=== PATIENT | female | born 1970 | race Caucasian/White ===

== ENCOUNTER 2019-11-02 08:44 | Outpatient (CLI) | payer OTHER, SELFPAY ==
--- NOTE | 2019-11-02 11:00 | NEURO_ITS ---
Patient Number: [id number] Impression: # Complains of foot pain bilaterally. # Tibial nerve terminal latencies longer than peroneal nerves. # Normal needle/EMG exam. # Clinical correlation recommended. Nerve Conduction Studies Anti Sensory Summary Table Stim Site NR Peak (ms) P-T Amp (?V) Site1 Site2 Delta-P (ms) Dist (cm) Naresh (m/s) Left Sup Fibular Anti Sensory (Ant Lat Mall) 14 cm 3.6 16.6 14 cm Ant Lat Mall 3.6 16.0 44 Right Sup Fibular Anti Sensory (Ant Lat Mall) 14 cm 3.6 8.8 14 cm Ant Lat Mall 3.6 16.0 44 Left Sural Anti Sensory (Lat Mall) Calf 3.7 3.6 Calf Lat Mall 3.7 16.0 43 Right Sural Anti Sensory (Lat Mall) Calf 3.6 9.4 Calf Lat Mall 3.6 16.0 44 Motor Summary Table Stim Site NR Onset (ms) O-P Amp (mV) Site1 Site2 Delta-0 (ms) Dist (cm) Naresh (m/s) Left Peroneal Motor (Vastus Med) Ankle 4.3 1.6 Popit Ankle 7.8 40.0 51 Popit 12.1 0.9 Right Peroneal Motor (Vastus Med) Ankle 4.3 1.0 Popit Ankle 9.0 38.0 42 Popit 13.3 0.8 Left Tibial Motor (Abd Rider Brev) Ankle 5.3 7.2 Knee Ankle 9.6 42.0 44 Knee 14.9 4.5 Right Tibial Motor (Abd Rider Brev) Ankle 5.4 1.7 Knee Ankle 9.7 43.0 44 Knee 15.1 1.1 F Wave Studies NR F-Lat (ms) L-R F-Lat (ms) Left Peroneal (Mrkrs) (EDB) 57.27 1.60 Right Peroneal (Mrkrs) (EDB) 58.87 1.60 Left Tibial (Mrkrs) (Abd Hallucis) 57.96 0.64 Right Tibial (Mrkrs) (Abd Hallucis) 58.60 0.64 EMG Side Muscle Nerve Root Ins Act Fibs Amp Dur Recrt Comment Right AntTibialis Dp Br Fibular L4-5 Nml Nml Nml Nml Nml Right Gastroc Tibial S1-2 Nml Nml Nml Nml Nml Right Fibularis Long Sup Br Fibular L5-S1 Nml Nml Nml Nml Nml Right Flex Dig Long Tibial L5-S2 Nml Nml Nml Nml Nml Right Ext Dig Brev Dp Br Fibular L5, S1 Nml Nml Nml Nml Nml Left AntTibialis Dp Br Fibular L4-5 Nml Nml Nml Nml Nml Left Gastroc Tibial S1-2 Nml Nml Nml Nml Nml Left Fibularis Long Sup Br Fibular L5-S1 Nml Nml Nml Nml Nml Left Flex Dig Long Tibial L5-S2 Nml Nml Nml Nml Nml Left Ext Dig Brev Dp Br Fibular L5, S1 Nml Nml Nml Nml Nml Right QuadratusFem QuadFemoris L4-5, S1 Nml Nml Nml Nml Nml Left QuadratusFem QuadFemoris L4-5, S1 Nml Nml Nml Nml Nml MTDD
== END 2019-11-02 08:45 | disposition home or self-care (01) ==
PROVIDERS: PCP Family Medicine; Visit Provider Podiatrist Foot & Ankle Surgery
DX: G57.52 Tarsal tunnel syndrome, left lower limb (principal); G57.51 Tarsal tunnel syndrome, right lower limb
CPT/HCPCS: 95886; 95910

== ENCOUNTER → 2020-04-13 14:40 | Outpatient (CLI) | payer OTHER, SELFPAY ==
--- NOTE | ~2020-04-13 | MR_ITS ---
EXAMINATION: MR ankle RT wo/w con DATE: 04/13/2020 16:24 INDICATION: Right ankle pain. Posterior tibial tendinitis. TECHNIQUE: Magnetic resonance imaging (MRI) of the right ankle was performed without and with 20 mL M ultiHance intravenous contrast. Sequences included axial T1-weighted FS FSE and axial, coronal, and s agittal T1-weighted FSE, T2-weighted FS FSE, and postcontrast T1-weighted FS FSE. COMPARISON: Right ankle MRI 01/06/2018 FINDINGS: Medial ankle ligaments: There are changes of prior sprain of superficial component of the deltoid ligament characterized by h eterotopic ossification and increased signal intensity. The deep component of the deltoid ligament de monstrates loss of the normal striated pattern, consistent with scarring from chronic sprain. Lateral ankle ligaments: Anterior talofibular ligament, calcaneofibular ligament, and posterior talofibular ligament are gissel l. The anterior and posterior tibiofibular ligaments are intact. Tendons: The peroneal tendons, anterior and medial ankle tendons, and Achilles tendon are normal. Plantar fascia: There is thickening of the central band of plantar fascia, consistent with fasciitis. There is an ent hesophyte at the calcaneal attachment. Bones/other: Bone alignment is normal. No fracture. There is mild ankle joint osteoarthritis. There are benign bon e islands in calcaneus. There is moderate osteoarthritis of medial naviculocuneiform joint. There is mild osteoarthritis of some of the other midfoot joints. There is a skin marker overlying the tarsal tunnel. There is a 1.5 x 1.7 cm mass superficial to the tarsal tunnel in this area, consistent with s car tissue Fluid: There is no joint effusion. IMPRESSION: 1. New mass superficial to the tarsal tunnel, consistent with scar tissue. 2. Polyarticular osteoarthritis. 3. Plantar fasciitis. 4. Normal posterior tibial tendon. Reviewed, dictated and finalized at location B.
[2020-04-13 15:43] LABS: Estimated Glomerular Filt Rate > 60
== END ==
PROVIDERS: Visit Provider Podiatrist Foot & Ankle Surgery
DX: M76.821 Posterior tibial tendinitis, right leg (principal); M19.071 Primary osteoarthritis, right ankle and foot; M72.2 Plantar fascial fibromatosis
CPT/HCPCS: 36415; 73723; A9577

== ENCOUNTER → 2020-07-11 17:33 | Outpatient (CLI) | payer OTHER, SELFPAY ==
--- NOTE | ~2020-07-11 | MM_ITS ---
EXAMINATION: MM screening [facility] BI w suzanne HISTORY: Screening mammogram TECHNIQUE: Craniocaudal and mediolateral oblique 3-D tomosynthesis images were obtained and synthetic 2-D images were generated. CAD analysis was submitted and interpreted. COMPARISON: 05/24/2019, 03/31/2018, 02/19/2017 BREAST PARENCHYMAL COMPOSITION: There are scattered areas of fibroglandular density. FINDINGS: RIGHT BREAST: There is focal asymmetry in the middle third of the upper outer quadrant of the breast. LEFT BREAST: There is no evidence of suspicious mass, calcification, or architectural distortion to s uggest malignancy. There has been no significant interval change. IMPRESSION: 1. Focal asymmetry of the right breast. 2. Additional mammographic views and possible breast ultrasound are recommended. BI-RADS Category 0: Incomplete: Needs additional imaging evaluation. Reviewed, dictated and finalized at location A. CIPAL COURT JUDGE IMPRESSION: 1. Focal asymmetry of the right breast. 2. Additional mammographic views and possible breast ultrasound are recommended . BI-RADS Category 0: Incomplete: Needs additional imaging evaluation.
== END ==
PROVIDERS: PCP Family Medicine; Visit Provider Nurse Practitioner Family
DX: Z12.31 Encounter for screening mammogram for malignant neoplasm of breast (principal); R92.8 Other abnormal and inconclusive findings on diagnostic imaging of breast
CPT/HCPCS: 77063; 77067

== ENCOUNTER → 2020-08-10 14:02 | Outpatient (CLI) | payer OTHER, SELFPAY ==
--- NOTE | ~2020-08-10 | MMUS_ITS ---
EXAMINATION: MM diagnostic mammo unilat RT, US breast RT limited HISTORY: Follow-up right breast asymmetry TECHNIQUE: Additional 3-D tomosynthesis images of the right breast were performed and synthetic 2-D i mages were generated. CAD analysis was submitted and interpreted. High resolution right breast ultras ound was performed. COMPARISON: Comparison to multiple prior studies sequentially, with oldest reviewed study dated 03/2016. BREAST PARENCHYMAL COMPOSITION: Breast composed of scattered areas of fibroglandular density FINDINGS: MAMMOGRAPHIC FINDINGS: There are no suspicious masses, calcifications or architectural distortion in the right breast to sug gest malignancy. Focal asymmetry in the upper outer quadrant of the right breast is less apparent wit h spot compression views, compatible with superimposed fibroglandular tissue. ULTRASOUND: Limited right breast ultrasound: Normal heterogeneous echotexture without focal solid or cystic mass. IMPRESSION: 1. No mammographic or sonographic evidence for malignancy in the right breast. 2. Routine yearly screening mammogram and regular clinical breast examination are recommended. BI-RADS Category 1: Negative Reviewed, dictated and finalized at location A. AGE FACILITY RENTAL CLERK IMPRESSION: 1. No mammographic or sonographic evidence for malignancy in the right breast. 2. Routine yearly screening mammogram and regular clinical breast examination a re recommended. BI-RADS Category 1: Negative
== END ==
PROVIDERS: PCP Nurse Practitioner Family; Visit Provider Nurse Practitioner Family
DX: R92.8 Other abnormal and inconclusive findings on diagnostic imaging of breast (principal)
CPT/HCPCS: 76642; 77065

== ENCOUNTER → 2020-08-15 15:00 | Outpatient (CLI) | payer OTHER, SELFPAY ==
--- NOTE | ~2020-08-15 | MR_ITS ---
EXAMINATION: MR knee LT wo con DATE: 08/15/2020 16:14 INDICATION: Left knee pain. TECHNIQUE: Magnetic resonance imaging (MRI) of the left knee was performed without intravenous contra st. Sequences included axial PD-weighted FS FSE, coronal PD-weighted FSE and PD-weighted FS FSE, sagi ttal PD-weighted FSE, and sagittal T2-weighted FS FSE. COMPARISON: Left knee radiographs 06/24/2016 FINDINGS: Medial compartment: There is a complex tear involving the body and posterior horn of medial meniscus. There is extensive full-thickness cartilage loss of femoral condyle and tibial condyle with cortical remodeling, mild [place] bchondral edema-like marrow signal intensity, and marginal osteophytes. Lateral compartment: Lateral meniscus is normal. There is shallow partial-thickness cartilage loss of femoral condyle and tibial condyle. Marginal osteophytes are noted. Patellofemoral compartment: There is deep partial thickness cartilage loss of patellar lateral facet with mild subchondral edema- like marrow signal intensity. There is shallow partial-thickness cartilage loss of patellar medial fa cet. There is partial-thickness cartilage loss of trochlea, deep at the lateral trochlea. Marginal os teophytes are noted. Ligaments and tendons: The anterior and posterior cruciate ligaments are normal. Medial collateral ligament and lateral ruth ateral ligament complex are normal. There is moderate patellar tendinopathy. Fluid: There is a small knee joint effusion. There are loose bodies posteromedially. There is trace fluid in a Goff's cyst. There is mild prepatellar and superficial infrapatellar bursitis. IMPRESSION: 1. Severe chondrosis of medial compartment, moderate chondrosis of patellofemoral compartment, and mi ld chondrosis of lateral compartment. 2. Tear of medial meniscus. 3. Small knee joint effusion with loose bodies. Reviewed, dictated and finalized at location A. NKLER DRIVER IMPRESSION: 1. Severe chondrosis of medial compartment, moderate chondrosis of patellofemor al compartment, and mild chondrosis of lateral compartment. 2. Tear of medial meniscus. 3. Small knee joint effusion with loose bodies.
== END ==
PROVIDERS: Visit Provider Nurse Practitioner
DX: S83.232A Complex tear of medial meniscus, current injury, left knee, initial encounter (principal); M25.462 Effusion, left knee
CPT/HCPCS: 73721

== ENCOUNTER 2020-11-14 10:39 | Emergency (ER) | payer OTHER, SELFPAY ==
[2020-11-14 10:57] VITALS: BP 123/78; PULSE 86; RESP 16; TEMP 36.1; O2SAT 99
--- NOTE | 2020-11-14 12:01 | ED.GENADULT ---
HPI - General Adult General Chief complaint: Burn/Smoke Inhalation Stated complaint: burn lt arm at work Time Seen by Provider: 11/14/20 11:00 Source: patient Mode of arrival: ambulatory Limitations: no limitations History of Present Illness HPI narrative: Patient presents with chief complaint of burn to the ulnar aspect of her left arm that she sustained by hitting the area up against the event at work. Patient reports there was a blistering to the center but it popped prior to arrival. She reports pain to the area.Patient denies any other injuries. Patient states she does not believe she is up-to-date on tetanus. Related Data Home Medications Medication Instructions Recorded Confirmed cholecalciferol (vitamin D3) 25 25 mcg PO DAILY 01/05/20 09/13/20 mcg (1,000 unit) capsule mecobalamin (vitamin B12) 1,000 1,000 mcg PO DAILY 01/05/20 09/13/20 mcg chewable tablet gabapentin 300 mg capsule 300 mg PO TID 07/24/20 09/13/20 Allergies Allergy/AdvReac Type Severity Reaction Status Date / Time brompheniramine Allergy Unknown Unknown Verified 11/14/20 11:01 dextromethorphan Allergy Unknown Unknown Verified 11/14/20 11:01 diphenhydramine Allergy Unknown Unknown Verified 11/14/20 11:01 guaifenesin Allergy Unknown Unknown Verified 11/14/20 11:01 hydrocodone Allergy Unknown Unknown Verified 11/14/20 11:01 phenylephrine Allergy Unknown Unknown Verified 11/14/20 11:01 pseudoephedrine Allergy Unknown Unknown Verified 11/14/20 11:01 strawberry Allergy Unknown Unknown Verified 11/14/20 11:01 Review of Systems Review of Systems: Narrative: CONSTITUTIONAL: Denies fever, chills, or sweats. EYES: Denies visual changes, redness, or discharge. ENT: Denies rhinorrhea, congestion, sore throat, or otalgia. CARDIOVASCULAR: Denies chest pain, palpitations, or edema. RESPIRATORY: Denies cough or dyspnea. GASTROINTESTINAL: Denies abdominal pain, nausea, vomiting, or diarrhea. GENITOURINARY: Denies dysuria or hematuria. SKIN: Reports skin burn denies rash or itching. MUSCULOSKELETAL: Denies back pain, joint pain, or myalgia. NEUROLOGIC: Denies headache, numbness, dizziness, or weakness. PSYCHIATRIC: Denies anxiety or depression. [facility] Past Medical History Medical History Asthma Depression Hyperlipidemia Surgical History Surgical History History of foot surgery (~2018) right History of knee surgery (~2005) History of partial hysterectomy Family History Family History Other Family history of arthritis Social History Social History Smoking status: Never smoker Second hand tobacco smoke exposure: No Alcohol intake: never Exam Narrative: Exam Narrative: GENERAL: Well-appearing, well-nourished, and in no acute distress. HEAD: Normocephalic, atraumatic. EYES: PERRLA and EOMI. NECK: Supple. No adenopathy or masses. CHEST: Clear to auscultation. No respiratory distress. No wheezes rales or rhonchi HEART: Regular rate and rhythm. EXTREMITIES: Normal range of motion. No edema. SKIN: Teardrop shaped burn to the ulnar aspect of the left arm. Approximately 10 x 4 cm at it's largest points. One non intact blister to the center. No present weeping or bleeding. warm, dry, no rash. NEURO: No focal deficits. Alert and oriented x3. PSYCH: Normal mood and affect. Course Vital Signs Vital signs: Vital Signs Temperature 97.0 F L 11/14/20 10:57 Pulse Rate 86 11/14/20 10:57 Respiratory Rate 16 11/14/20 10:57 Blood Pressure 123/78 11/14/20 10:57 Pulse Oximetry 99 11/14/20 10:57 Temperature 97.0 F L 11/14/20 10:57 Pulse Rate 86 11/14/20 10:57 Respiratory Rate 16 11/14/20 10:57 Blood Pressure 123/78 11/14/20 10:57 Pulse Oximetry 99 11/14/20 10:57 Medical Decision [place]
[2020-11-14] MEDS: TETANUS,DIPHTHERIA,AC PERTUSSIS ADULT (0.5 ML) BOOSTRIX IM (12:13)
[2020-11-14 12:38] VITALS: BP 122/78; PULSE 80; RESP 18; O2SAT 99
== END 2020-11-14 12:39 | disposition home or self-care (01) ==
PROVIDERS: Emergency Provider Emergency Medicine; PCP Family Medicine
DX: T22.212A Burn of second degree of left forearm, initial encounter (principal); J45.909 Unspecified asthma, uncomplicated; E78.5 Hyperlipidemia, unspecified; T31.0 Burns involving less than 10% of body surface; Z23 Encounter for immunization; X15.0XXA Contact with hot stove (kitchen), initial encounter
CPT/HCPCS: 16020; 90471; 90715; 99282

== ENCOUNTER 2021-07-01 13:36 | Outpatient (CLI) | payer OTHER, SELFPAY ==
--- NOTE | 2021-07-01 14:47 | ECG_ITS ---
Measurements Intervals [place] Rate: 72 P: 24 SD: 181 QRS: -4 QRSD: 94 T: 29 QT: 357 QTc: 393 Interpretive Statements SINUS RHYTHM INCOMPLETE RIGHT BUNDLE BRANCH BLOCK POOR R WAVE PROGRESSION, ANTERIOR LEADS INFERIOR INFARCT, AGE INDETERMINATE BORDERLINE T WAVE ABNORMALITY- ANTEROLATERAL LEADS BASELINE ARTIFACT- I, II, III, AVR, AVL, AVF, V1-V6 ABNORMAL ECG Electronically Signed On 07-01-2021 15:20:10 CDT by Dennis Corbett D.O.
[2021-07-01 15:22] LABS: Basophils Absolute Auto 0.1 K/mm3 (0.0-0.1); Basophils Percent Auto 0.7 % (0.2-1.2); Eosinophils Absolute Auto 0.1 K/mm3 (0-0.3); Hematocrit 42.7 % (37.0-47.0); Hemoglobin 14.6 g/dL (12.0-15.0); Immature Granulocyte Absolute 0.01 K/mm3 (0.00-0.031); Immature Granulocyte Percent A 0.1 % (0-0.5); Lymphocytes Absolute Auto 1.73 K/mm3 (0.9-3.2); Lymphocytes Percent Auto 24.7 % (18.3-44.2); Mean Corpuscular HGB Conc 34.2 g/dl (32-36); Mean Corpuscular Volume 87.7 fl (80-100); Monocytes Absolute Auto 0.5 K/mm3 (0.1-0.6); Monocytes Percent Auto 6.4 % (2.6-8.5); Neutrophils Absolute Auto 4.6 K/mm3 (1.3-6.7); Neutrophils Percent Auto 66.1 % (45.5-73.1); Platelet Count Result 274 k/mm3 (150-375); Red Blood Count 4.87 M/mm3 (4.2-5.4); Red Cell Distribution Width 12.2 % (11.5-14.5)
[2021-07-01 15:36] LABS: INR 0.9; Prothrombin Time 11.8 Seconds (11.1-14.7)
[2021-07-01 15:37] LABS: Partial Thromboplastin Time 30.9 SECONDS (22.3-36.8)
[2021-07-01 15:40] LABS: Albumin Level 4.8 g/dL (3.5-5.1); Anion Gap 9 mmol/L (8-16); Blood Urea Nitrogen 27 mg/dL (7-17); Calcium 10.1 mg/dL (8.4-10.2); Carbon Dioxide 30 mmol/L (22-30); Chloride 102 mmol/L (98-107); Estimated Glomerular Filt Rate > 60; Glucose 89 mg/dL (65-110); Potassium 4.3 mmol/L (3.4-5.0); Sodium 141 mmol/L (137-145)
[2021-07-01 16:09] LABS: Add Urine Microscopic? YES; Appearance Urine Cloudy (Clear); Bacteria Urine Trace /hpf; Bilirubin Urine Negative (Negative); Blood Urine Negative (Negative); Color Urine Yellow (Yellow); Glucose Urine UA Negative (Negative); Ketones Urine Negative (Negative); Leukocyte Esterase Ur Negative LEU/UL (Negative); Mucus Urine Rare /lpf; Nitrate Urine Negative (Negative); Protein Urine Negative (Negative); RBC Urine 0-2 /hpf (0-2); Specific Grav Ur 1.025 (1.001-1.035); Squamous Epithelial Cell Urine Few /hpf (Few); Urobilinogen Urine Negative mg/dL (<2.0); WBC Urine 0-3 /hpf
[2021-07-01 16:24] LABS: Urine Cotinine NEGATIVE
[2021-07-01 16:30] LABS: Hemoglobin A1C 4.8 % (<5.7)
== END 2021-07-01 13:37 | disposition home or self-care (01) ==
LOC: ANHSURGERY 13:41
PROVIDERS: PCP Family Medicine; Visit Provider Orthopaedic Surgery
DX: Z01.818 Encounter for other preprocedural examination (principal); M17.12 Unilateral primary osteoarthritis, left knee; R94.31 Abnormal electrocardiogram [ECG] [EKG]
CPT/HCPCS: 80048; 80307; 81001; 82040; 83036; 85025; 85610; 85730; 87081; 93005

== ENCOUNTER 2021-07-17 | Day surgery (SDC) | payer OTHER, SELFPAY ==
[2021-06-10 11:54] VITALS: BMI 42.0
[2021-07-01 13:46] VITALS: BMI 41.1
--- NOTE | 2021-07-01 14:24 | PC.NURSE ---
Report to the Outpatient Waiting Room, entrance under the green pavilion located off [facility], at time __0830 on date 07/17/21 . OR Time: 1030 . - You and your visitor will be asked a series of questions to screen for COVID 19 for your protection. - A mask is required within the hospital. - Only one visitor is allowed at this time. Patient visitors will be guided where to wait when not with patient. Preoperative COVID Testing Requirements: No COVID Test needed if: (proof is required; if not received patient will have Rapid Test prior to entry) - Patient has received COVID Vaccine at least 14 days prior to procedure date or - Patient has positive COVID test result within last 90 days of surgery date. COVID Test needed if above criteria is not met If not COVID vaccinated a COVID test must be conducted within 72 hours of surgery and patient is asked to isolate self from time of testing until procedure. You will go to the [employer] [facility] Testing Site for your COVID testing. The [employer] [facility] is located at the corner of [address] [facility]. You will only be called if COVID results are positive and your surgeon may reschedule your elective surgery date. Patients may have clear liquids (water, carbonated beverages, clear teas, apple juice) until 3 hours prior to surgery with a maximum of 20 ounces. - No food from midnight until time of surgery - Infants may have breast milk until 4 hours before surgery, formula 6 hours prior to surgery. - Children will be allowed to drink immediately following surgery. If applicable, please bring a bottle or sippy cup to assist with drinking. Juice, water, soda, and popsicles are readily available. For infants on formula, please bring formula the day of surgery. Pacifiers are allowed. Take the following medications with a SIP of water the morning of surgery: _INHALERS, BUPROPION Medications to discontinue per physician _IBUPROFEN- PER DR KDID. ALL VITAMINS AND SUPPLEMENTS Date to take last dose____07/13/21 Please no make-up, nail tongan, hairspray, perfume, deodorant, or body powder the day of surgery. No jewelry (including any body piercings) or valuables the day of surgery, leave them at home. Please take a shower or bath the night before, or the morning of, surgery with an antibacterial soap. Wear comfortable, loose fitting clothing. Children are encouraged to wear pajamas. - Jewelry must be removed prior to entering the operating room. Rings and piercings that are not removed may be cut off. - The hospital will not accept responsibility for valuables. - Please leave all valuables, including medications, at home the day of surgery. If you are going home after surgery, a licensed stock car driver must drive you home. - NO public transportation without another adult. - We recommend that an adult stay with you for 24 hours following discharge. - We also recommend that you do not drive, make important decision, drink alcoholic beverages, or take any drugs that were not prescribed by your health care provider for at least 24 hours after your discharge time. For Pediatric surgeries, we recommend two adults accompany the child home (only one inside the building at this time). Follow any additional instructions given to you from your surgeon. Telephone instructions given to ___PATIENT and asked if any additional questions and then verbalized understanding. Patient advised to call surgeon office or pre surgery nurse liaison [phone] if any additional questions.
[2021-07-01 14:44] VITALS: BP 131/84; PULSE 74; RESP 16; TEMP 36.7; O2SAT 100
[2021-07-15 13:30] VITALS: BMI 40.7
--- NOTE | 2021-07-16 13:39 | WPDANESEPPF ---
Anes - Initial Pre Proc Eval Procedure: Operation Date: 07/17/21 10:30 Proposed Procedures p Left Total Knee Arthroplasty - Popeye Collins MD Date/Time: 07/16/21 13:39 Surgeon: Popeye Collins MD Pre Op Diagnosis: left knee DJD Patient Data Age: 51 Gender: F Height: 1.71 m Weight: 119.8 kg Last Vital Signs Temp 36.7 C 07/01/21 14:44 Pulse 74 07/01/21 14:44 Resp 16 07/01/21 14:44 BP 131/84 07/01/21 14:44 Pulse Ox 100 07/01/21 14:44 Allergies Allergy/AdvReac Type Severity Reaction Status Date / Time pseudoephedrine Allergy Intermediate Rash Verified 07/17/21 08:43 brompheniramine Allergy Unknown Unknown Verified 07/01/21 14:01 dextromethorphan Allergy Unknown Unknown Verified 07/01/21 14:01 diphenhydramine Allergy Unknown Unknown Verified 07/01/21 14:01 guaifenesin Allergy Unknown SWELLING Verified 07/01/21 14:01 AND RASH phenylephrine Allergy Unknown Unknown Verified 07/01/21 14:01 strawberry Allergy Unknown Rash Verified 07/17/21 08:42 hydrocodone AdvReac Intermediate Nausea Verified 07/17/21 08:43 Home Medications Medication Instructions Recorded Confirmed Type cholecalciferol (vitamin D3) 25 25 mcg PO HS 01/05/20 07/01/21 History mcg (1,000 unit) capsule mecobalamin (vitamin B12) 1,000 1,000 mcg PO HS 01/05/20 07/01/21 History mcg chewable tablet montelukast 10 mg tablet See Rx Instructions .ROUTE 02/08/21 07/01/21 Rx .COMPLEX #90 tablet chlorhexidine gluconate 4 % 1 applic TOPICAL ONCE #237 ml 04/09/21 07/01/21 Rx topical liquid bupropion HCl (smoking deter) 150 150 mg PO BID #180 tablet 05/17/21 07/01/21 Rx mg tablet,12 hr sustained-release(smoking deterrent) albuterol sulfate 90 mcg/actuation 1 - 2 puff INHALATION Q4H PRN #8 gm 06/05/21 07/01/21 Rx aerosol inhaler budesonide-formoterol HFA 160 2 puff INHALATION Q12H 06/11/21 07/01/21 History mcg-4.5 mcg/actuation aerosol inhaler ibuprofen 800 mg tablet 800 mg PO TID PRN #90 tablet 06/19/21 07/01/21 Rx lovastatin 10 mg PO HS 07/01/21 07/01/21 History ECG: Date of Service: 07/01/21 Procedure(s): CA 12 lead EKG Accession Number(s): [id number] cc: ~ Measurements Intervals [place] Rate: 72 P: 24 RI: 181 QRS: -4 QRSD: 94 T: 29 QT: 357 QTc: 393 Interpretive Statements SINUS RHYTHM INCOMPLETE RIGHT BUNDLE BRANCH BLOCK POOR R WAVE PROGRESSION, ANTERIOR LEADS INFERIOR INFARCT, AGE INDETERMINATE BORDERLINE T WAVE ABNORMALITY- ANTEROLATERAL LEADS BASELINE ARTIFACT- I, II, III, AVR, AVL, AVF, V1-V6 ABNORMAL ECG Electronically Signed On 07-01-2021 15:20:10 CDT by Dennis Corbett D.O. Patient hx anesthesia problems: none Family hx anesthesia problems: none Results Review: All pre-operative results and documents have been reviewed as part of the pre-operative evaluation. [facility] Past Medical History Medical History Abnormal mammogram of right breast Asthma BMI greater than 40 Depression Encounter for screening mammogram for malignant neoplasm of breast Hyperlipidemia Left knee DJD Left knee pain Medial meniscus tear Persistent headaches Surgical History Surgical History History of foot surgery (~2018) right History of knee surgery (~2005) History of partial hysterectomy Family History Family History Other Family history of arthritis Social History Social History Smoking status: Never smoker Second hand tobacco smoke exposure: No Additional smoking assessm
--- NOTE | 2021-07-16 13:46 | WPDANESPNB ---
Anes - Peripheral Nerve Block Date/Time: 07/16/21 13:46 I have discussed with the patient/family/POA the placement of a peripheral nerve block for post-operative pain management, including associated risks, benefits, complications, and side effects. Alternative methods of post-operative analgesia were detailed. Questions were solicited and answers provided to the satisfaction of the patient/family/POA. Time-Out: A pre-procedural Time-Out was completed immediately before starting the procedure and confirmed: Patient Identification, Site, Procedure, Patient Position and the Availability of Requisite Equipment. Clinical Indications: Acute post-operative pain management requested by the operative surgeon. Nerve Block Insertion Note Anes-nerve block: adductor canal left Patient position: supine Skin prep: chlorhexidine Needle: 22 gauge, stimulating, insulated echogenic needle. Needle length: 80 mm Technique: ultrasound Technique comment: in plane Injectate: bupivacaine 0.25% with epi 5 mcg/ml (30cc) Observations: tolerated well Complications: none Procedure start time:: 1035 Procedure end time:: 1040
--- NOTE | 2021-07-16 15:54 | PM.IMHP ---
H&P: HPI History of Present Illness Date/Time: 07/16/21 15:54 Tawana presents with Left knee pain that has been present for many years. She has had a previous left knee arthroscopy ~10 years ago. She had an MRI performed on 08/16/20 that shows a medial meniscus tear, and severe chondrosis. She states her pain is at her medial and posterior knee. Her knee is giving out and painful during ambulation. She has declined PT, in the past, and is still working. Her BMI is currently 39.4 today, she would like to discuss her next POC. Her last cortisone injection was performed on 01/24/21 and gave her 2 months of pain relief. Involved knee: left Onset: gradual Location of pain: medial and posterior Character: stabbing and shooting Exacerbated by: weight bearing, kneeling, squatting, stairs and prolonged activity Relieved by: nothing Associated symptoms: Reports swelling, instability, buckling and giving way History of occupational/recreational activity with repetitive motion: No History of prior knee injury: Yes (previous Lt knee arthroscopy ~10+ yrs ago.) Prior treatment: injection, surgery, NSAIDs and rest Chief Complaint: LEFT KNEE PAIN Review of Systems Review of Systems: All systems reviewed & are unremarkable except as noted in HPI and below Cardiovascular: Cardiovascular: Reports no additional cardiovascular complaints Respiratory: Respiratory: Reports no additional respiratory complaints Gastrointestinal: Gastrointestinal: Reports no additional gastrointestinal complaints Genitourinary: Genitourinary: Reports no additional female genitourinary complaints Integumentary/Breasts: Skin/Breast: Reports system reviewed and no additional complaints, except as docu and Denies change in pigmentation [facility] Past Medical History Medical History Abnormal mammogram of right breast Asthma BMI greater than 40 Depression Encounter for screening mammogram for malignant neoplasm of breast Hyperlipidemia Left knee DJD Left knee pain Medial meniscus tear Persistent headaches Surgical History Surgical History History of foot surgery (~2018) right History of knee surgery (~2005) History of partial hysterectomy Family History Family History Other Family history of arthritis Social History Social History Smoking status: Never smoker Second hand tobacco smoke exposure: No Additional smoking assessment comments: DENIES ANY FORM OF TOBACCO USE Alcohol intake: never Substance use: never Gender identity (if verbalized by the patient): Female Spiritual care concerns: No Meds Home Medications and Allergies Home Medications Medication Instructions Recorded Confirmed Type cholecalciferol (vitamin D3) 25 25 mcg PO HS 01/05/20 07/01/21 History mcg (1,000 unit) capsule mecobalamin (vitamin B12) 1,000 1,000 mcg PO HS 01/05/20 07/01/21 History mcg chewable tablet montelukast 10 mg tablet See Rx Instructions .ROUTE 02/08/21 07/01/21 Rx .COMPLEX #90 tablet chlorhexidine gluconate 4 % 1 applic TOPICAL ONCE #237 ml 04/09/21 07/01/21 Rx topical liquid bupropion HCl (smoking deter) 150 150 mg PO BID #180 tablet 05/17/21 07/01/21 Rx mg tablet,12 hr sustained-release(smoking deterrent) albuterol sulfate 90 mcg/actuation 1 - 2 puff INHALATION Q4H PRN #8 gm 06/05/21 07/01/21 Rx aerosol inhaler budesonide-formoterol HFA 160 2 puff INHALATION Q12H 06/11/21 07/01/21 History mcg-4.5 mcg/actuation aerosol inhaler ibuprofen 800 mg tablet 800 mg PO TID PRN #90 tablet 06/19/21 07/01/21 Rx lovastatin 10 mg PO HS 07/01/21 07/01/21 History Allergies Allergy/AdvReac Type Severity Reaction Status Date / Time brompheniramine Allergy Unknown Unknown Verified 07/01/21 14:01 dextromethorphan
[2021-07-17] VITALS (12 sets, daily range): BP systolic 95–134; BP diastolic 50–95; PULSE 70–86; RESP 13–20; TEMP 36.1; O2SAT 94–100
--- NOTE | ~2021-07-17 | XR_ITS ---
EXAMINATION: XR knee LT 2V DATE: 07/17/2021 13:29 INDICATION: Total left knee arthroplasty. Postop. TECHNIQUE: 2 views of left knee were obtained. COMPARISON: Left knee radiographs 04/05/2021, MRI 08/15/2020 FINDINGS: There is a total left knee arthroplasty in near-anatomic alignment without patellar resurfa cing. No fracture. There are dystrophic calcifications posterior to medial collateral ligament. There is gas in the soft tissues and knee joint, consistent with recent surgery. IMPRESSION: 1. Total left knee arthroplasty in near-anatomic alignment. Reviewed, dictated and finalized at location A. FILLER
--- NOTE | 2021-07-17 07:21 | WPDHPUPDATE1 ---
History and Physical Update Update Date/Time: 07/17/21 07:21 History and Physical has been reviewed, including an updated exam of the patient. There are NO changes in the patient's condition. Risks, benefits, and alternatives have been discussed and questions answered. Patient agrees to proceed with procedure.
[2021-07-17] MEDS: ACETAMINOPHEN 500 MG TABLET 1000 MG PO (09:00)
[2021-07-17] MEDS: LACTATED RINGERS 1,000 ML 30 ML IV CONT ×2 (09:00→13:18)
[2021-07-17] MEDS: TRANEXAMIC ACID 1,000MG/ISO100 1,000 MG/100 ML BAG 200 MG IVPB (09:21)
[2021-07-17] MEDS: ceFAZolin 2 GM/D5W 50 ML 2 GM/50 ML BAG IVPB (10:45)
[2021-07-17] MEDS: GENTAMICIN BONE CEMENT REFOBACIN 1 EACH TOPICAL (11:27)
[2021-07-17] MEDS: TRANEXAMIC ACID 1,000 MG/10 ML AMPUL 1000 MG IV PUSH (12:26)
[2021-07-17] MEDS: fentaNYL CITRATE INJ (*CRX) 100 MCG/2 ML VIAL 25 MCG IV PUSH ×5 (13:35→14:14)
--- NOTE | 2021-07-17 13:35 | W.PM.PROC2 ---
Procedure Note - Detailed Date of Procedure 07/17/21 Pre-op Diagnosis left knee DJD Post-op Diagnosis same Procedure Performed L TKA Surgeon Popeye Collins MD Anesthesia general Description of Procedure THE LEFT KNEE WAS PREPPED AND DRAPED IN THE STERILE FASHION. THERE WAS A 20 DEGREE FLEXION CONTRACTURE. A MIDLINE SKIN INCISION WAS MADE. A MEDIAL PARAPATELLAR ARTHROTOMY WAS MADE. THE PATELLA WAS EVERTED. THERE WAS TRICOMPARTMENT DJD. THERE WAS MINIMAL PATELLA DJD. AN INTRAMEDULLARY KELLY WAS PLACED IN THE FEMUR. A DISTAL FEMORAL CUT WAS MADE IN 5 DEGREES OF VALGUS REMOVING APPROXIMATELY 9 MM OF BONE FROM THE DISTAL FEMUR. THE FEMUR WAS SIZED TO 65. A 65 FEMORAL CUTTING BLOCK WAS PLACED IN 3 DEGREES OF EXTERNAL ROTATION AND IN ALIGNMENT WITH SAMIA'S LINE AND THE TRANSEPICONDYLAR AXIS. ANTERIOR POSTERIOR AND CHAMFER CUTS WERE MADE. THE CUTS WERE EXCELLENT. NEXT AN INTRAMEDULLARY CUTTING GUIDE WAS PLACED IN THE TIBIA. A TRANS TIBIAL CUT WAS MADE ALONG THE LONG AXIS OF THE TIBIA. APPROXIMATELY 10 MM OF BONE WAS REMOVED FROM THE HIGH SIDE OF THE TIBIA. THE TIBIA WAS THEN PLANED TO A SMOOTH SURFACE. POSTERIOR FEMORAL OSTEOPHYTES WERE REMOVED FROM THE FEMORAL CONDYLES. A 71 TIBIAL TRIAL WAS PLACED IN ALIGNMENT WITH THE 1/3 MEDIAL ASPECT OF THE TIBIAL TUBERCLE. THEN A 65 FEMORAL TRIAL COMPONENT WAS PLACED. BOTH HAD EXCELLENT FITS. EVENTUALLY A 12 MM POLYETHYLENE TRIAL COMPONENT WAS PLACED. THE KNEE WAS TAKEN THROUGH A RANGE OF MOTION. THE KNEE CAME OUT TO FULL EXTENSION. THERE WAS NO ABNORMAL TILT TO THE PATELLA. THERE WAS GOOD A/P AND VARUS/VALGUS STABILITY. THERE WAS NO EXCESSIVE ROLL BACK WITH FLEXION. THE TRIAL COMPONENTS WERE REMOVED. THEN A 65 FEMORAL COMPONENT AND 71 TIBIAL COMPONENT WITH A 12 POLYETHYLENE COMPONENT WERE CEMENTED INTO PLACE. ONCE THE CEMENT WAS HARD THE KNEE WAS TAKEN THROUGH A ROM AGAIN AND FOUND TO BE STABLE WITH NO PATELLA TILT NO EXCESSIVE ROLL BACK WITH FLEXION AND GOOD STABILITY WITH COMPLETE AND FULL EXTENSION. THE KNEE WAS IRRIGATED WITH STERILE BETADINE AND WATER FOR ABOUT 3 MINUTES. THE BLEEDERS WERE CAUTERIZED. THE ARTHROTOMY WAS REPAIRED WITH NUMBER 1 VICRYL. THE SUB CUTANEOUS LAYER AND SKIN WITH 2-0 VICRYL AND 2-0 QUIL ANDTHEN DERMABOND. THE WOUND WAS WASHED AND A STERILE DRESSING WAS APPLIED. PATIENT WAS EXTUBATED. Estimated Blood Loss -200.0 Pathology none sent Complications No immediate complications Condition stable Disposition PACU
[2021-07-17] MEDS: oxyCODONE HCL (*CRX) 5 MG TAB IR PO (14:36)
--- NOTE | 2021-07-17 14:49 | SUR.PHASEII ---
Patient is being seen by PT now.
--- NOTE | 2021-07-17 15:37 | SUR.PHASEII ---
Patient has been cleared by therapy to discharge home. Patient is still hooked-up to the monitor and waiting on a meal tray.
--- NOTE | 2021-07-17 16:14 | SUR.PHASEII ---
RN called Dr. Collins and told him to please resend the prescriptions to the other pharmacy.
== END 2021-07-17 16:50 | disposition home or self-care (01) ==
PROVIDERS: PCP Family Medicine; Visit Provider Orthopaedic Surgery
PROC: (CPT 27447; principal; 2021-07-17 10:30)
DX: M17.12 Unilateral primary osteoarthritis, left knee (principal); G89.18 Other acute postprocedural pain; E78.5 Hyperlipidemia, unspecified; J45.909 Unspecified asthma, uncomplicated; F32.9 Major depressive disorder, single episode, unspecified; E66.01 Morbid (severe) obesity due to excess calories; Z68.41 Body mass index [BMI] 40.0-44.9, adult; Z79.51 Long term (current) use of inhaled steroids
CPT/HCPCS: 27447; 64447; 36415; 73560; 80048; 80307; 81001; 82040; 83036; 85025; 85610; 85730; 86850; 86900; 86901; 87081; 93005; 97110; 97161; A9270; C1713; C1776; J0171; J0690; J1100; J1885; J2250; J2270; J2405; J2704; J2795; J3010; J7120

== ENCOUNTER 2021-10-06 09:19 | Inpatient (IN) | payer OTHER, SELFPAY ==
[2021-10-06] VITALS (13 sets, daily range): BP systolic 116–145; BP diastolic 73–88; PULSE 79–103; RESP 16–24; TEMP 36.4–36.9; O2SAT 98–100; BMI 41.6
--- NOTE | ~2021-10-06 | US_ITS ---
EXAMINATION: US right upper quadrant DATE: 10/09/2021 09:43 INDICATION: Elevated liver function tests TECHNIQUE: Multiple grayscale and Doppler ultrasound images of the abdomen were obtained. COMPARISON: None FINDINGS: Pancreas is normal. Liver has normal echogenicity and contour, with a smooth surface. No liver lesion identified. No intrahepatic biliary duct dilation suspected. Portal venous flow was seen in the hepa topetal, normal direction and has normal Doppler waveform. Visualized proximal inferior vena cava is normal. The gallbladder is normal in appearance. There is no cholelithiasis. The common bile duct me asures mm, which is normal. Sonographic [place] sign was reported as negative by the transcription specialist. IMPRESSION: 1. Normal right upper quadrant ultrasound. Reviewed, dictated and finalized at location A. Y MACHINE OPERATOR
--- NOTE | ~2021-10-06 | CT_ITS ---
EXAMINATION: CT brain wo con EXAM DATE: 10/09/2021 09:45 INDICATION: Frequent headaches TECHNIQUE: Spiral CT of the head was performed without contrast. Axial, coronal and sagittal images were reviewed. The dose-length product (DLP) for this examination was 605.33 mGy-cm. The exposure w as tailored according to patient size, and iterative reconstruction (ASIR) was used as additional dos e reduction technique. There is no prior study for comparison. FINDINGS: There is no acute intraparenchymal hemorrhage. No evidence of intraparenchymal brain mass lesion. No evidence of acute infarction. There is no mass effect or midline shift. The ventricles are normal in size. There are no extra-axial collections. There are no acute calvarial fractures. T he orbits are unremarkable. Soft tissue is unremarkable. The visualized sinuses and mastoid air derrek ls are well aerated. IMPRESSION: No acute intracranial findings. Reviewed, dictated and finalized at location B. OND SAW OPERATOR
--- NOTE | 2021-10-06 10:35 | ED.ALLEREA ---
HPI - Allergic Reaction General Chief complaint: Allergic Reaction <SHARON Laura Last Filed: 10/06/21 14:05> Stated complaint: ALL RX TO MED <SHARON Laura Last Filed: 10/06/21 14:05> Time Seen by Provider: 10/06/21 10:08 <SHARON Laura Last Filed: 10/06/21 14:05> Source: patient <SHARON Laura Last Filed: 10/06/21 14:05> Mode of arrival: ambulatory <SHARON Laura Last Filed: 10/06/21 14:05> Limitations: no limitations <SHARON Laura Last Filed: 10/06/21 14:05> History of Present Illness HPI narrative: This is a 51-year-old female that presents to the emergency department for rash. Reports she started taking pregabalin 4 days ago. The next day she started to note a red rash throughout the body. Over the next couple of days the rash continued to worsen. She also started to note some bruising and bleeding of her gums. Denies fever, recent injuries or surgeries, recent illness, or any other new medications. <SHARON Laura Last Filed: 10/06/21 14:05> Related Data Home medications: Home Medications Medication Instructions Recorded Confirmed cholecalciferol (vitamin D3) 25 25 mcg PO HS 01/05/20 08/05/21 mcg (1,000 unit) capsule mecobalamin (vitamin B12) 1,000 1,000 mcg PO HS 01/05/20 08/05/21 mcg chewable tablet budesonide-formoterol HFA 160 2 puff INHALATION Q12H 06/11/21 08/05/21 mcg-4.5 mcg/actuation aerosol inhaler pregabalin 75 mg PO 10/06/21 <SHARON Laura Last Filed: 10/06/21 14:05> Allergies/adverse reactions: Allergies Allergy/AdvReac Type Severity Reaction Status Date / Time phenylpropanolamine Allergy Severe Hives Verified 10/06/21 09:43 [From Dimetapp (brompheniramine-PPA)] brompheniramine Allergy Intermediate Rash Verified 10/06/21 09:43 dextromethorphan Allergy Intermediate Rash Verified 10/06/21 09:43 diphenhydramine Allergy Intermediate Rash Verified 10/06/21 09:43 phenylephrine Allergy Intermediate Rash Verified 10/06/21 09:43 pseudoephedrine Allergy Intermediate Rash Verified 10/06/21 09:43 guaifenesin Allergy Unknown SWELLING Verified 10/06/21 09:43 AND RASH <Claudia Evans PA-C - Last Filed: 10/06/21 14:05> Review of Systems Review of Systems: CONSTITUTIONAL: Denies fever ENT: Reports dentalgia SKIN: Reports rash <Claudia Evans PA-C - Last Filed: 10/06/21 14:05> All systems reviewed & are unremarkable except as noted in HPI and below <Claudia Evans PA-C - Last Filed: 10/06/21 14:05> [facility] Past Medical History Medical History: Medical History Abnormal mammogram of right breast Asthma BMI greater than 40 Depression Encounter for screening mammogram for malignant neoplasm of breast Hyperlipidemia Left knee DJD Left knee pain Medial meniscus tear Persistent headaches <Claudia Evans PA-C - Last Filed: 10/06/21 14:05> Surgical History Surgical History: Surgical History History of foot surgery (~2018) right History of knee surgery (~2005) History of partial hysterectomy <Claudia Evans PA-C - Last Filed: 10/06/21 14:05> Family History Family History: Family History Other Family history of arthritis <Claudia Evans PA-C - Last Filed: 10/06/21 14:05> Social History Social History: Social History Second hand tobacco smoke exposure: No Additional smoking assessment comments: DENIES ANY FORM OF TOBACCO USE Alcohol intake: never Substance use: never Gender identity (if verbalized by the patient): Female Spiritual care concerns: No <Claudia Evans PA-C - Last Filed: 10/06/21 14:05> Exam Narrative: GENERAL: Well-appearing, well-nourished, and i
[2021-10-06 11:05] LABS: Add Urine Microscopic? NO; Appearance Urine Clear (Clear); Bilirubin Urine Negative (Negative); Blood Urine Negative (Negative); Color Urine Yellow (Yellow); Glucose Urine UA Negative (Negative); Ketones Urine Negative (Negative); Leukocyte Esterase Ur Negative LEU/UL (Negative); Nitrate Urine Negative (Negative); Protein Urine Negative (Negative); Specific Grav Ur 1.009 (1.001-1.035); Urobilinogen Urine Negative mg/dL (<2.0)
[2021-10-06 11:10] LABS: Alanine Aminotransferase 23 U/L (4-35); Albumin Level 4.2 g/dL (3.5-5.1); Alkaline Phosphatase 69 U/L (38-126); Anion Gap 6 mmol/L (8-16); Aspartate Amino Transferase 26 U/L (14-36); Bilirubin,Total 0.6 mg/dL (0.2-1.3); Blood Urea Nitrogen 13 mg/dL (7-17); Calcium 9.5 mg/dL (8.4-10.2); Carbon Dioxide 29 mmol/L (22-30); Chloride 104 mmol/L (98-107); Estimated CRCL calculation 103 ml/min; Estimated Glomerular Filt Rate > 60; Glucose 87 mg/dL (65-110); Potassium 4.1 mmol/L (3.4-5.0); Prothrombin Time 13.1 Seconds (11.1-14.7); Sodium 139 mmol/L (137-145)
[2021-10-06 11:11] LABS: Partial Thromboplastin Time 31.5 SECONDS (22.3-36.8)
[2021-10-06 11:19] LABS: Basophils Percent Auto 0.6 % (0.2-1.2); Eosinophils Absolute Auto 0.2 K/mm3 (0-0.3); Eosinophils Percent Auto 3.1 % (0-4.4); Hematocrit 38.7 % (37.0-47.0); Hemoglobin 13.1 g/dL (12.0-15.0); Immature Granulocyte Absolute 0.02 K/mm3 (0.00-0.031); Immature Granulocyte Percent A 0.3 % (0-0.5); Lymphocytes Absolute Auto 1.49 K/mm3 (0.9-3.2); Lymphocytes Percent Auto 22.9 % (18.3-44.2); Mean Corpuscular HGB Conc 33.9 g/dl (32-36); Mean Corpuscular Hemoglobin 28.6 pg (26-34); Mean Corpuscular Volume 84.5 fl (80-100); Monocytes Absolute Auto 0.5 K/mm3 (0.1-0.6); Monocytes Percent Auto 7.1 % (2.6-8.5); Neutrophils Absolute Auto 4.3 K/mm3 (1.3-6.7); Red Blood Count 4.58 M/mm3 (4.2-5.4); Red Cell Distribution Width 13.9 % (11.5-14.5); White Blood Count 6.5 K/mm3 (4.5-10.0)
[2021-10-06 11:20] LABS: Platelet Count Result < 3 k/mm3 (150-375)
[2021-10-06 11:36] LABS: Platelet Estimate Decreased (Adequate)
[2021-10-06 12:09] LABS: Erythrocyte Sedimentation Rate 22 mm/hr (0-20)
[2021-10-06] MEDS: methylPREDNISolone SOD SUCC 125 MG VIAL IV PUSH (12:29)
[2021-10-06] MEDS: PANTOPRAZOLE SODIUM IV 40 MG VIAL IV PUSH (12:29)
--- NOTE | 2021-10-06 14:00 | PM.IMHP ---
H&P: HPI History of Present Illness Date/Time: 10/06/21 14:00 Chief Complaint: Possible allergic reaction. Narrative: This is a pleasant 51-year-old female with asthma, hypercholesterolemia, depression, and chronic foot pain who presented to the ED today with concerns for a possible allergic reaction. She sees Pain Management for ongoing, chronic pain in feet for which she was recently prescribed pregabalin. Approximately 2 days after starting the drug she noticed a widespread rash throughout her body and even in her mouth which she describes as nonpruritic small, red dots. Shortly thereafter she noticed widespread bruising and bleeding gums when brushing her teeth. She stopped taking the medication after speaking with her doctor and she was referred to the emergency department where her workup showed severe thrombocytopenia with a platelet count less than 3000 though the rest of her workup was relatively unremarkable. Aside from pregabalin she has not been started on any new medications recently and she specifically denies having received heparin recently. She has never had similar symptoms. She has not noticed any fullness in her abdomen or lymphadenopathy. She also denies recent illnesses, fever, sweats, and generalized malaise. Review of Systems Review of Systems: Twelve systems were reviewed. No headache. No vertigo. No recent cold or flu symptoms. No chest pain or shortness of breath. She denies cough. No nausea, vomiting, or diarrhea. No epistaxis, hematemesis, melena, hematochezia, or hematuria. Except as documented, all other systems were reviewed and are negative. [facility] Past Medical History Medical History (Updated 10/06/21 @ 22:47 by Carley Parikh PA-C) Asthma BMI greater than 40 Chronic foot pain Depression Hyperlipidemia Left knee DJD Persistent headaches Surgical History Surgical History (Updated 10/06/21 @ 22:43 by Carley Parikh PA-C) History of foot surgery (2019) Several right foot surgeries for removal of bone spurs and ?cysts? History of knee surgery (2005) History of left knee replacement History of partial hysterectomy Family History Family History Other Family history of arthritis Social History Social History (Updated 10/06/21 @ 22:45 by Carley Parikh PA-C) Social History: Surrogate decision maker: Tawana Nick, mother. Code status: Full code. Smoking status: Never smoker Second hand tobacco smoke exposure: No Alcohol intake: never Substance use: never Additional living arrangements comments: The patient lives in [place]. 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 Meds Home Medications and Allergies Home Medications Medication Instructions Recorded Confirmed Type cholecalciferol (vitamin D3) 25 25 mcg PO HS 01/05/20 10/06/21 History mcg (1,000 unit) capsule mecobalamin (vitamin B12) 1,000 1,000 mcg PO HS 01/05/20 10/06/21 History mcg chewable tablet bupropion HCl (smoking deter) 150 150 mg PO BID #180 tablet 05/17/21 10/06/21 Rx mg tablet,12 hr sustained-release(smoking deterrent) albuterol sulfate 90 mcg/actuation 1 - 2 puff INHALATION Q4H PRN #8 gm 06/05/21 10/06/21 Rx aerosol inhaler budesonide-formoterol HFA 160 2 puff INHALATION Q12H 06/11/21 10/06/21 History mcg-4.5 mcg/actuation aerosol inhaler lovastatin 10 mg tablet 10 mg PO HS #90 tablet 08/19/21 10/06/21 Rx montelukast 10 mg tablet See Rx Instructions .ROUTE 09/03/21 10/06/21 Rx .COMPLEX #90 tablet diazepam 5 mg tablet 5 mg PO BID PRN #30 tablet 09/26/21 10/06/21 Rx celecoxib [Celebrex] 200 mg PO DAILY PRN 10/06/21 10/06/21 History Allergies Allergy/AdvReac Type Severity Reaction Status Date / Time phenylpropanolamine Allergy Severe Hives Verified 10/06/21 14:41 [From Dimetapp (brompheniramine-PPA)] brompheniramine Al
[2021-10-06] MEDS: SODIUM CHLORIDE 0.9% IV 250 ML 30 ML IV CONT (14:14)
--- NOTE | 2021-10-06 14:40 | ADMGEN ---
This patient, Tawana Hall, was admitted to 2 Medical Room 242-01. Patient/family oriented to hospital policies and general routines including ID bracelet, bed and alarms, visiting hours, pain management, procedures, bathroom and other care routines, personal items, smoking policy, room service/diet, and visiting hours. Information on how to activate the Rapid Response Team has been discussed. Patient/Family are encouraged to report perceived risks to care and to ask questions if they do not understand what they are told or what they should do.
[2021-10-06] MEDS: SODIUM CHLORIDE 0.9% IV 250 ML 30 ML (16:45)
[2021-10-06] MEDS: buPROPion HCL SR (12 HR) 150 MG TAB PO (21:26)
[2021-10-06] MEDS: methylPREDNISolone SOD SUCC 125 MG VIAL 60 MG IV PUSH (21:27)
[2021-10-07] VITALS (11 sets, daily range): BP systolic 113–132; BP diastolic 63–80; PULSE 68–90; RESP 16–20; TEMP 36.1–36.8; O2SAT 95–99
[2021-10-07 05:38] LABS: Basophils Percent Auto 0.2 % (0.2-1.2); Hematocrit 37.1 % (37.0-47.0); Hemoglobin 12.6 g/dL (12.0-15.0); Immature Granulocyte Absolute 0.07 K/mm3 (0.00-0.031); Immature Granulocyte Percent A 0.6 % (0-0.5); Lymphocytes Absolute Auto 1.15 K/mm3 (0.9-3.2); Mean Corpuscular Hemoglobin 28.4 pg (26-34); Mean Corpuscular Volume 83.7 fl (80-100); Monocytes Absolute Auto 0.2 K/mm3 (0.1-0.6); Monocytes Percent Auto 2.1 % (2.6-8.5); Neutrophils Percent Auto 87.1 % (45.5-73.1); Red Blood Count 4.43 M/mm3 (4.2-5.4); Red Cell Distribution Width 13.7 % (11.5-14.5); White Blood Count 11.5 K/mm3 (4.5-10.0)
[2021-10-07 06:33] LABS: Platelet Count Result 6 k/mm3 (150-375)
[2021-10-07] MEDS: FLUTICASONE/SALMETEROL 115-21 MCG INHALER 1 PUFF 2 PUFF INHALATION ×2 (08:15→20:55)
--- NOTE | 2021-10-07 08:26 | PDONCCN ---
HPI - Date of Consult Date/Time: 10/07/21 08:26 Requesting Physician: Adrián Blancas MD Primary Care Provider: Marcia Anthony MD - Consult Narrative Reason for consult: ITP. Narrative: Tawana Hall is a 51 year old female with history of hyperlipidemia, depression and chronic foot pain secondary to fasciitis for which she was given pregabalin last Thursday. She developed allergic reaction and started having petechial hemorrhages in bilateral upper extremities and lower extremities. She denies any bleeding and bruising. She denies any previous history of thrombocytopenia. She denies any fever chills night sweats or any other signs of infection. She came into the hospital and labs were done that showed a platelet count of 3000. She denies any previous history of hematological disorder. Review of Systems - Review of Systems All systems reviewed & are unremarkable except as noted in HPI and [facility] Medical History: Medical History (Last Updated 10/06/21 @ 22:47 by Carley Parikh PA-C) Asthma BMI greater than 40 Chronic foot pain Depression Hyperlipidemia Left knee DJD Persistent headaches Surgical History: Surgical History (Last Updated 10/06/21 @ 22:43 by Carley Parikh PA-C) History of foot surgery Onset Date: 2018 Several right foot surgeries for removal of bone spurs and ?cysts? History of knee surgery Onset Date: 2005 History of left knee replacement History of partial hysterectomy Family History: Family History (Last Reviewed 10/06/21 @ 22:44 by Carley Parikh PA-C) Other Family history of arthritis - Social History Social History: Social History (Last Updated 10/06/21 @ 22:45 by Carley Parikh PA-C) Alcohol Use: Alcohol intake: never Substance Use: Substance use: never Smoking Status: Smoking status: Never smoker Second hand tobacco smoke exposure: No Meds Home Medications Medication Instructions Recorded Confirmed Type cholecalciferol (vitamin D3) 25 25 mcg PO HS 01/05/20 10/06/21 History mcg (1,000 unit) capsule mecobalamin (vitamin B12) 1,000 1,000 mcg PO HS 01/05/20 10/06/21 History mcg chewable tablet bupropion HCl (smoking deter) 150 150 mg PO BID #180 tablet 05/17/21 10/06/21 Rx mg tablet,12 hr sustained-release(smoking deterrent) albuterol sulfate 90 mcg/actuation 1 - 2 puff INHALATION Q4H PRN #8 gm 06/05/21 10/06/21 Rx aerosol inhaler budesonide-formoterol HFA 160 2 puff INHALATION Q12H 06/11/21 10/06/21 History mcg-4.5 mcg/actuation aerosol inhaler lovastatin 10 mg tablet 10 mg PO HS #90 tablet 08/19/21 10/06/21 Rx montelukast 10 mg tablet See Rx Instructions .ROUTE 09/03/21 10/06/21 Rx .COMPLEX #90 tablet diazepam 5 mg tablet 5 mg PO BID PRN #30 tablet 09/26/21 10/06/21 Rx celecoxib [Celebrex] 200 mg PO DAILY PRN 10/06/21 10/06/21 History Allergies Allergy/AdvReac Type Severity Reaction Status Date / Time phenylpropanolamine Allergy Severe Hives Verified 10/06/21 14:41 [From Dimetapp (brompheniramine-PPA)] brompheniramine Allergy Intermediate Rash Verified 10/06/21 14:41 dextromethorphan Allergy Intermediate Rash Verified 10/06/21 14:41 diphenhydramine Allergy Intermediate Rash Verified 10/06/21 14:41 phenylephrine Allergy Intermediate Rash Verified 10/06/21 14:41 pseudoephedrine Allergy Intermediate Rash Verified 10/06/21 14:41 guaifenesin Allergy Unknown SWELLING Verified 10/06/21 14:41 AND RASH Results - Labs CBC & Chem 7: 10/07/21 05:04 10/06/21 10:49 Labs: Short CBC 10/06/21 10/07/21 Range/Units 11:12 05:04 WBC 6.5 11.5 H (4.5-10.0) K/mm3 Hgb 13.1 12.6 (12.0-15.0) g/dL Hct 38.7 37.1 (37.0-47.0) % Plt Count < 3 L* D 6 L* D (150-375) k/mm3 BMP 10/06/21 10:49 Sodium 139 Potassium 4.1 Chloride 104 Carbon Dioxide 29 BUN 13 D Creatinine 0.70 Glucose 87 Calcium 9.5 Monique
[2021-10-07] MEDS: PANTOPRAZOLE SODIUM IV 40 MG VIAL IV PUSH (08:41)
[2021-10-07] MEDS: methylPREDNISolone SOD SUCC 125 MG VIAL 60 MG IV PUSH ×2 (08:41→20:14)
[2021-10-07] MEDS: buPROPion HCL SR (12 HR) 150 MG TAB PO ×2 (08:41→20:14)
--- NOTE | 2021-10-07 10:07 | PCCCNOTE ---
On 10/07/21, the student, [Daniela Benjamin ], provided care and completed [facility] documentation on this patient. I have reviewed the student's documentation and agree with the findings.
[2021-10-07] MEDS: ACETAMINOPHEN 500 MG TABLET 1000 MG PO ×2 (11:10→20:15)
--- NOTE | 2021-10-07 14:00 | PM.IMPN ---
Progress Note: A&P Assessment and Plan (1) Severe thrombocytopenia: Code(s): D69.6 - Thrombocytopenia, unspecified Status: Acute Assessment and Plan: Presumably drug-induced with recent addition of pregabalin versus ITP Plt at admission <3, Current Plt 6 Dr. De Leon consulted thank you for your help 4 units of Plt ordered, 3 given methylprednisolone, 60 mg q.12 hours ESR 22, CRP 2.0 Discontinue pregabalin Hold lovastatin and montelukast as both can cause thrombocytopenia. (2) Chronic foot pain: Code(s): M79.673 - Pain in unspecified foot; G89.29 - Other chronic pain Status: Acute Assessment and Plan: Celebrex also on hold given severe thrombocytopenia Pregabalin discontinued as above. (3) Asthma: Qualifiers: Asthma complication type: uncomplicated Asthma persistence: intermittent Asthma severity: mild Qualified Code(s): J45.20 - Mild intermittent asthma, uncomplicated Code(s): J45.909 - Unspecified asthma, uncomplicated Status: Chronic Assessment and Plan: No acute issues. Continue advair and albuterol (4) Depression: Qualifiers: Depression Type: unspecified Qualified Code(s): F32.9 - Major depressive disorder, single episode, unspecified Code(s): F32.9 - Major depressive disorder, single episode, unspecified Status: Chronic Assessment and Plan: No acute issues Continue bupropion 150 Q12h (5) Hyperlipidemia: Qualifiers: Hyperlipidemia type: mixed hyperlipidemia Qualified Code(s): E78.2 - Mixed hyperlipidemia Code(s): E78.5 - Hyperlipidemia, unspecified Status: Chronic Assessment and Plan: Lovastatin on hold as that can really caused thrombocytopenia. Time Spent With Patient Time with patient: Greater than 35 minutes Subjective Date/time seen: 10/07/21 1400 Interval history: Date/Time: 10/06/21 14:00 Narrative: This is a pleasant 51-year-old female with asthma, hypercholesterolemia, depression, and chronic foot pain who presented to the ED today with concerns for a possible allergic reaction. She sees Pain Management for ongoing, chronic pain in feet for which she was recently prescribed pregabalin. Approximately 2 days after starting the drug she noticed a widespread rash throughout her body and even in her mouth which she describes as nonpruritic small, red dots. Shortly thereafter she noticed widespread bruising and bleeding gums when brushing her teeth. She stopped taking the medication after speaking with her doctor and she was referred to the emergency department where her workup showed severe thrombocytopenia with a platelet count less than 3000 though the rest of her workup was relatively unremarkable. Aside from pregabalin she has not been started on any new medications recently and she specifically denies having received heparin recently. She has never had similar symptoms. She has not noticed any fullness in her abdomen or lymphadenopathy. She also denies recent illnesses, fever, sweats, and generalized malaise. Date/Time 10/07/21 1400 Patient is in bed. She is doing ok at this time. She has not been getting up much, however, denies any complications with walking or moving. She is feeling ok. She did have a small headache, however, the Tylenol helped relieve that. She denies any chest pain, shortness of breath, nausea, vomiting, diarrhea, constipation, weakness, or fatigue. Review of Systems Review of Systems: All systems reviewed & are unremarkable except as noted in HPI and below Exam Const: General: cooperative, healthy appearing, no acute distress, well developed, alert and awake Nutritional Appearance: well nourished Orientation/consciousness: patient oriented x3 Limitations: no limitations HENMT: Head: normal to inspection Ears: hearing grossly normal bilaterally General nose exam: Normal external nose present Mouth: Yes No
[2021-10-07 17:05] LABS: Mean Platelet Volume 10.5 fl (7.4-10.4); Platelet Count Result 37 k/mm3 (150-375)
[2021-10-08] VITALS (8 sets, daily range): BP systolic 114–131; BP diastolic 62–76; PULSE 63–93; RESP 18–20; TEMP 35.6–36.9; O2SAT 95–99
[2021-10-08 06:50] LABS: Hematocrit 36.8 % (37.0-47.0); Hemoglobin 12.4 g/dL (12.0-15.0); Immature Granulocyte Absolute 0.11 K/mm3 (0.00-0.031); Immature Granulocyte Percent A 0.9 % (0-0.5); Immature Platelet Fraction Pct 23.5 % (0.9-11.2); Lymphocytes Absolute Auto 1.25 K/mm3 (0.9-3.2); Lymphocytes Percent Auto 10.8 % (18.3-44.2); Mean Corpuscular HGB Conc 33.7 g/dl (32-36); Mean Corpuscular Hemoglobin 28.5 pg (26-34); Mean Corpuscular Volume 84.6 fl (80-100); Monocytes Absolute Auto 0.4 K/mm3 (0.1-0.6); Monocytes Percent Auto 3.7 % (2.6-8.5); Neutrophils Absolute Auto 9.8 K/mm3 (1.3-6.7); Neutrophils Percent Auto 84.6 % (45.5-73.1); Red Blood Count 4.35 M/mm3 (4.2-5.4); White Blood Count 11.6 K/mm3 (4.5-10.0)
[2021-10-08 06:58] LABS: Alanine Aminotransferase 33 U/L (4-35); Albumin Level 4.7 g/dL (3.5-5.1); Alkaline Phosphatase 74 U/L (38-126); Anion Gap 10 mmol/L (8-16); Aspartate Amino Transferase 39 U/L (14-36); Bilirubin,Total 0.6 mg/dL (0.2-1.3); Blood Urea Nitrogen 17 mg/dL (7-17); Calcium 10.1 mg/dL (8.4-10.2); Carbon Dioxide 25 mmol/L (22-30); Chloride 103 mmol/L (98-107); Estimated CRCL calculation 130 ml/min; Estimated Glomerular Filt Rate > 60; Glucose 116 mg/dL (65-110); Magnesium 1.9 mg/dL (1.6-2.3); Potassium 4.3 mmol/L (3.4-5.0); Sodium 138 mmol/L (137-145)
--- NOTE | 2021-10-08 07:15 | PM.IMPN ---
Progress Note: A&P Assessment and Plan (1) Severe thrombocytopenia: Code(s): D69.6 - Thrombocytopenia, unspecified Status: Acute Assessment and Plan: Presumably drug-induced with recent addition of pregabalin versus ITP Plt at admission <3, Current Plt 25 Dr. De Leon consulted thank you for your help 4 units of Plt given 10/07/21, and one unit 10/08/21 methylprednisolone, 60 mg q.12 hours ESR 22, CRP 2.0 Discontinue pregabalin Hold lovastatin and montelukast as both can cause thrombocytopenia. (2) Chronic foot pain: Code(s): M79.673 - Pain in unspecified foot; G89.29 - Other chronic pain Status: Acute Assessment and Plan: Celebrex also on hold given severe thrombocytopenia Pregabalin discontinued as above. (3) Asthma: Qualifiers: Asthma severity: mild Asthma persistence: intermittent Asthma complication type: uncomplicated Qualified Code(s): J45.20 - Mild intermittent asthma, uncomplicated Code(s): J45.909 - Unspecified asthma, uncomplicated Status: Chronic Assessment and Plan: No acute issues. Continue advair and albuterol (4) Depression: Qualifiers: Depression Type: unspecified Qualified Code(s): F32.9 - Major depressive disorder, single episode, unspecified Code(s): F32.9 - Major depressive disorder, single episode, unspecified Status: Chronic Assessment and Plan: No acute issues Continue bupropion 150 Q12h (5) Hyperlipidemia: Qualifiers: Hyperlipidemia type: mixed hyperlipidemia Qualified Code(s): E78.2 - Mixed hyperlipidemia Code(s): E78.5 - Hyperlipidemia, unspecified Status: Chronic Assessment and Plan: Lovastatin on hold as that can really caused thrombocytopenia. Time Spent With Patient Time with patient: Greater than 35 minutes Subjective Date/time seen: 10/08/21 0715 Interval history: Date/Time: 10/06/21 14:00 Narrative: This is a pleasant 51-year-old female with asthma, hypercholesterolemia, depression, and chronic foot pain who presented to the ED today with concerns for a possible allergic reaction. She sees Pain Management for ongoing, chronic pain in feet for which she was recently prescribed pregabalin. Approximately 2 days after starting the drug she noticed a widespread rash throughout her body and even in her mouth which she describes as nonpruritic small, red dots. Shortly thereafter she noticed widespread bruising and bleeding gums when brushing her teeth. She stopped taking the medication after speaking with her doctor and she was referred to the emergency department where her workup showed severe thrombocytopenia with a platelet count less than 3000 though the rest of her workup was relatively unremarkable. Aside from pregabalin she has not been started on any new medications recently and she specifically denies having received heparin recently. She has never had similar symptoms. She has not noticed any fullness in her abdomen or lymphadenopathy. She also denies recent illnesses, fever, sweats, and generalized malaise. Date/Time 10/07/21 1400 Patient is in bed. She is doing ok at this time. She has not been getting up much, however, denies any complications with walking or moving. She is feeling ok. She did have a small headache, however, the Tylenol helped relieve that. She denies any chest pain, shortness of breath, nausea, vomiting, diarrhea, constipation, weakness, or fatigue. Date/Time 10/08/21 0730 patient is lying in bed. Patient has no complaints today. She was concerned about the petechiae on her legs however I would let her know that that will soon subside. Patient is also ready to go home however with her platelets only 25 today she is not going to be able to be discharged today. She is also doing well with eating. She denies any chest pain, shortness of breath, nausea, vomiting, weakness, fatigue, or fevers, sweats, ch
[2021-10-08 07:23] LABS: Platelet Count Result 25 k/mm3 (150-375)
[2021-10-08] MEDS: PANTOPRAZOLE SODIUM IV 40 MG VIAL IV PUSH (09:06)
[2021-10-08] MEDS: buPROPion HCL SR (12 HR) 150 MG TAB PO ×2 (09:06→20:46)
[2021-10-08] MEDS: methylPREDNISolone SOD SUCC 125 MG VIAL 60 MG IV PUSH ×2 (09:07→20:50)
[2021-10-08] MEDS: FLUTICASONE/SALMETEROL 115-21 MCG INHALER 1 PUFF 2 PUFF INHALATION ×2 (09:07→21:38)
[2021-10-08] MEDS: ACETAMINOPHEN 500 MG TABLET 1000 MG PO (18:52)
[2021-10-09 04:28] VITALS: BP 140/75; PULSE 71; RESP 20; TEMP 36; O2SAT 97
[2021-10-09] MEDS: ACETAMINOPHEN 500 MG TABLET 1000 MG PO ×2 (04:37→11:35)
[2021-10-09 05:43] LABS: Basophils Percent Auto 0.2 % (0.2-1.2); Hematocrit 39.2 % (37.0-47.0); Hemoglobin 13.2 g/dL (12.0-15.0); Immature Granulocyte Absolute 0.09 K/mm3 (0.00-0.031); Immature Granulocyte Percent A 0.8 % (0-0.5); Immature Platelet Fraction Pct 15.7 % (0.9-11.2); Lymphocytes Absolute Auto 1.25 K/mm3 (0.9-3.2); Lymphocytes Percent Auto 11.3 % (18.3-44.2); Mean Corpuscular HGB Conc 33.7 g/dl (32-36); Mean Corpuscular Hemoglobin 28.1 pg (26-34); Mean Corpuscular Volume 83.4 fl (80-100); Mean Platelet Volume 12.6 fl (7.4-10.4); Monocytes Absolute Auto 0.3 K/mm3 (0.1-0.6); Monocytes Percent Auto 3.1 % (2.6-8.5); Neutrophils Absolute Auto 9.4 K/mm3 (1.3-6.7); Neutrophils Percent Auto 84.6 % (45.5-73.1); Platelet Count Result 60 k/mm3 (150-375); Red Cell Distribution Width 13.9 % (11.5-14.5); White Blood Count 11.1 K/mm3 (4.5-10.0)
[2021-10-09 05:58] LABS: Alanine Aminotransferase 114 U/L (4-35); Albumin Level 4.9 g/dL (3.5-5.1); Alkaline Phosphatase 77 U/L (38-126); Anion Gap 12 mmol/L (8-16); Aspartate Amino Transferase 112 U/L (14-36); Bilirubin,Total 0.7 mg/dL (0.2-1.3); Blood Urea Nitrogen 20 mg/dL (7-17); Calcium 10.1 mg/dL (8.4-10.2); Carbon Dioxide 21 mmol/L (22-30); Chloride 105 mmol/L (98-107); Estimated CRCL calculation 113 ml/min; Estimated Glomerular Filt Rate > 60; Glucose 112 mg/dL (65-110); Potassium 4.2 mmol/L (3.4-5.0); Sodium 138 mmol/L (137-145)
--- NOTE | 2021-10-09 07:00 | PM.DS ---
DS: Admitting Diagnosis Discharge Date Date/Time 10/09/21 0700 Admitting Diagnosis ITP DS: Discharge Diagnosis Discharge Diagnosis (1) Severe thrombocytopenia: Code(s): D69.6 - Thrombocytopenia, unspecified Status: Acute Assessment and Plan: Presumably drug-induced with recent addition of pregabalin versus ITP Plt at admission <3, Current Plt 25 Dr. De Leon consulted thank you for your help 4 units of Plt given 10/07/21, and one unit 10/08/21 methylprednisolone, 60 mg q.12 hours ESR 22, CRP 2.0 Discontinue pregabalin Hold lovastatin and montelukast as both can cause thrombocytopenia. (2) Chronic foot pain: Code(s): M79.673 - Pain in unspecified foot; G89.29 - Other chronic pain Status: Acute Assessment and Plan: Celebrex also on hold given severe thrombocytopenia Pregabalin discontinued as above. (3) Asthma: Qualifiers: Asthma complication type: uncomplicated Asthma persistence: intermittent Asthma severity: mild Qualified Code(s): J45.20 - Mild intermittent asthma, uncomplicated Code(s): J45.909 - Unspecified asthma, uncomplicated Status: Chronic Assessment and Plan: No acute issues. Continue advair and albuterol (4) Depression: Qualifiers: Depression Type: unspecified Qualified Code(s): F32.9 - Major depressive disorder, single episode, unspecified Code(s): F32.9 - Major depressive disorder, single episode, unspecified Status: Chronic Assessment and Plan: No acute issues Continue bupropion 150 Q12h (5) Hyperlipidemia: Qualifiers: Hyperlipidemia type: mixed hyperlipidemia Qualified Code(s): E78.2 - Mixed hyperlipidemia Code(s): E78.5 - Hyperlipidemia, unspecified Status: Chronic Assessment and Plan: Lovastatin on hold as that can really caused thrombocytopenia. DS: Summary Hospital Course Hospital Course: Patient is a 51-year-old female with a past medical history asthma, depression, hyperlipidemia who presented to the ED for of rash. Upon admission to the ED it was noted that platelets were 3000. Patient was given a total of 5 units of platelets and her platelet count has been on trend. Currently her platelets are 60,000. patient was also noted to have petechiae, and oncology was following. It was noted the patient was taking gabapentin. Gabapentin does have the side effect of thrombocytopenia. Labs have been stable and vital signs. Patient is doing okay and is ready for discharge. Patient will need to follow up with Oncology in 1 week. I did talk to the patient's [id number] and explained to her the plan of care. He was also noted patient's AST and ALT are 112/114. Right upper quadrant ultrasound was done and was normal. Patient was also complaining of headaches mostly in the morning time frontal. His head CT showed no intracranial abnormalities. PT and OT did work with patient as she has had a recent knee replacement. Patient denies any chest pain, shortness of breath, nausea, vomiting, diarrhea, constipation, weakness, fatigue. Status at Discharge Functional status at discharge: independent ambulation Overall status at discharge: patient is progressing back to baseline Time Spent with Patient Time attestation: Total time spent providing and/or coordinating discharge services: 45 minutes Time spent: Greater than 30 minutes Specific discharge activities: Diagnostic testing, chart review, developing a treatment plan, education, care coordination documentation, physical exam, result review Exam Const: General: cooperative, healthy appearing, no acute distress, well developed, alert and awake Nutritional Appearance: well nourished Orientation/consciousness: patient oriented x3 Limitations: no limitations HENMT: Head: normal to inspection Ears: hearing grossly normal bilaterally General nose exam: Normal external nose present Mouth: Yes No
[2021-10-09 07:52] LABS: Hepatitis B Surface Antigen Negative (Negative)
[2021-10-09 07:58] LABS: HAV RESULT Negative (Negative); Hepatitis B Core IgM Result Negative (Negative)
[2021-10-09] MEDS: FLUTICASONE/SALMETEROL 115-21 MCG INHALER 1 PUFF 2 PUFF INHALATION (08:00)
[2021-10-09 08:09] LABS: Hepatitis C Virus Antibody Negative (Negative)
[2021-10-09] MEDS: buPROPion HCL SR (12 HR) 150 MG TAB PO (08:45)
[2021-10-09] MEDS: methylPREDNISolone SOD SUCC 125 MG VIAL 60 MG IV PUSH (08:45)
[2021-10-09] MEDS: PANTOPRAZOLE SODIUM IV 40 MG VIAL IV PUSH (08:45)
[2021-10-09 23:00] LABS: Platelet Antibody, Direct IgG NEGATIVE (NEGATIVE)
== END 2021-10-09 14:18 | disposition home or self-care (01) | DRG 813 ==
LOC: ANHED 12:24 → ANH2MED 13:36
PROVIDERS: Physician Assistant; Admitting Provider Internal Medicine; Emergency Provider Emergency Medicine; PCP Family Medicine; Visit Provider Nurse Practitioner
DX: D69.59 Other secondary thrombocytopenia (principal); Z68.41 Body mass index [BMI] 40.0-44.9, adult; M79.673 Pain in unspecified foot; G89.29 Other chronic pain; J45.20 Mild intermittent asthma, uncomplicated; F32.9 Major depressive disorder, single episode, unspecified; E78.2 Mixed hyperlipidemia; E66.9 Obesity, unspecified; T42.6X5A Adverse effect of other antiepileptic and sedative-hypnotic drugs, initial encounter; R51.9 Headache, unspecified; Z79.899 Other long term (current) drug therapy
CPT/HCPCS: 36415; 36430; 70450; 76705; 80053; 80074; 81003; 83735; 85025; 85049; 85055; 85610; 85652; 85730; 86023; 86140; 86900; 86901; 94640; 96374; 96375; 97161; 97165; 99285; P9036; A9270; C9113; G0378; J2930; J7050; P9034

== ENCOUNTER 2021-10-21 13:44 | Outpatient (CLI) | payer OTHER, SELFPAY ==
[2021-10-21 14:00] LABS: Hematocrit 45.5 % (37.0-47.0); Hemoglobin 14.9 g/dL (12.0-15.0); Mean Corpuscular HGB Conc 32.7 g/dl (32-36); Mean Corpuscular Hemoglobin 28.4 pg (26-34); Mean Corpuscular Volume 86.8 fl (80-100); Platelet Count Result 389 k/mm3 (150-375); Red Blood Count 5.24 M/mm3 (4.2-5.4); Red Cell Distribution Width 14.5 % (11.5-14.5); White Blood Count 15.1 K/mm3 (4.5-10.0)
== END 2021-10-21 13:45 | disposition home or self-care (01) ==
LOC: ANHLAB 13:45
PROVIDERS: PCP Family Medicine; Visit Provider Internal Medicine Hematology & Oncology
DX: D69.3 Immune thrombocytopenic purpura (principal)
CPT/HCPCS: 36415; 85027

== ENCOUNTER 2021-11-12 13:50 | Outpatient (CLI) | payer OTHER, SELFPAY ==
[2021-11-12 14:04] LABS: Hemoglobin 14.2 g/dL (12.0-15.0); Mean Corpuscular Volume 87.8 fl (80-100); Mean Platelet Volume 9.8 fl (7.4-10.4); Platelet Count Result 252 k/mm3 (150-375); Red Cell Distribution Width 15.1 % (11.5-14.5); White Blood Count 5.2 K/mm3 (4.5-10.0)
== END 2021-11-12 13:51 | disposition home or self-care (01) ==
LOC: ANHLAB 13:51
PROVIDERS: PCP Family Medicine; Visit Provider Internal Medicine Hematology & Oncology
DX: D69.3 Immune thrombocytopenic purpura (principal)
CPT/HCPCS: 36415; 85027

== ENCOUNTER → 2022-02-12 09:47 | Outpatient (CLI) | payer OTHER, SELFPAY ==
--- NOTE | ~2022-02-12 | MM_ITS ---
EXAMINATION: MM screening akhil BI w suzanne HISTORY: Screening TECHNIQUE: Craniocaudal and mediolateral oblique 3-D tomosynthesis images were obtained and synthetic 2-D images were generated. CAD analysis was submitted and interpreted. COMPARISON: Comparison to multiple prior studies sequentially, with oldest reviewed study dated 03/2016. BREAST PARENCHYMAL COMPOSITION: Breast composed of scattered areas of fibroglandular density FINDINGS: There is no evidence of suspicious mass, calcification, or architectural distortion to sugg est malignancy in either breast. There has been no suspicious interval change. IMPRESSION: 1. No mammographic evidence of malignancy. 2. Recommend routine screening mammography in one year. BI-RADS Category 1: Negative Reviewed, dictated and finalized at location A.
== END ==
PROVIDERS: PCP Family Medicine; Visit Provider Family Medicine
DX: Z12.31 Encounter for screening mammogram for malignant neoplasm of breast (principal)
CPT/HCPCS: 77063; 77067

== ENCOUNTER 2022-02-12 14:52 | Outpatient (CLI) | payer OTHER, SELFPAY ==
[2022-02-12 15:06] LABS: Basophils Absolute Auto 0.1 K/mm3 (0.0-0.1); Basophils Percent Auto 0.8 % (0.2-1.2); Eosinophils Absolute Auto 0.2 K/mm3 (0-0.3); Hematocrit 42.6 % (37.0-47.0); Hemoglobin 14.8 g/dL (12.0-15.0); Immature Granulocyte Absolute 0.02 K/mm3 (0.00-0.031); Immature Granulocyte Percent A 0.3 % (0-0.5); Lymphocytes Absolute Auto 1.99 K/mm3 (0.9-3.2); Lymphocytes Percent Auto 25.2 % (18.3-44.2); Mean Corpuscular HGB Conc 34.7 g/dl (32-36); Mean Corpuscular Hemoglobin 29.9 pg (26-34); Mean Corpuscular Volume 86.1 fl (80-100); Mean Platelet Volume 10.3 fl (7.4-10.4); Monocytes Absolute Auto 0.4 K/mm3 (0.1-0.6); Monocytes Percent Auto 5.4 % (2.6-8.5); Neutrophils Absolute Auto 5.3 K/mm3 (1.3-6.7); Neutrophils Percent Auto 66.3 % (45.5-73.1); Platelet Count Result 293 k/mm3 (150-375); Red Blood Count 4.95 M/mm3 (4.2-5.4); Red Cell Distribution Width 12.1 % (11.5-14.5); White Blood Count 7.9 K/mm3 (4.5-10.0)
[2022-02-12 15:09] LABS: Blood Urea Nitrogen 18 mg/dL (8-26); Carbon Dioxide 25 mmol/L (22-30); Chloride 103 mmol/L (98-109); Estimated Glomerular Filt Rate > 60; Glucose 86 mg/dL (70-105); Potassium 4.1 mmol/L (3.5-4.9); Sodium 138 mmol/L (138-146)
== END 2022-02-12 14:53 | disposition home or self-care (01) ==
LOC: ANHLAB 14:53
PROVIDERS: PCP Family Medicine; Visit Provider Internal Medicine Hematology & Oncology
DX: D69.3 Immune thrombocytopenic purpura (principal)
CPT/HCPCS: 36415; 80047; 85025

== ENCOUNTER 2022-06-22 09:36 | Emergency (ER) | payer OTHER, SELFPAY ==
[2022-06-22 09:42] VITALS: BP 154/88; PULSE 83; RESP 18; TEMP 36.8; O2SAT 100
--- NOTE | 2022-06-22 09:58 | ED.GENADULT ---
HPI - General Adult General Chief complaint: Unspecified Stated complaint: rectal bleeding Time Seen by Provider: 06/22/22 09:43 History of Present Illness HPI narrative: Patient is a 52-year-old female with a history of hemorrhoids here for evaluation of rectal bleeding over the past 3 days. Patient states that she has noted rectal itching and some blood on the toilet tissue when she wiped, but yesterday she noticed that she started to drip blood in the toilet. Patient denies any abdominal pain, nausea, vomiting, weakness, fatigue, rash. Patient does have a history of thrombocytopenia that was presumed reaction to gabapentin; contacted her PCP who recommended ED evaluation today to get her blood counts checked. Related Data Home Medications Medication Instructions Recorded Confirmed cholecalciferol (vitamin D3) 25 25 mcg PO HS 01/05/20 03/24/22 mcg (1,000 unit) capsule mecobalamin (vitamin B12) 1,000 1,000 mcg PO HS 01/05/20 03/24/22 mcg chewable tablet budesonide-formoterol HFA 160 2 puff inhalation Q12H 06/11/21 03/24/22 mcg-4.5 mcg/actuation aerosol inhaler (Symbicort) Allergies Allergy/AdvReac Type Severity Reaction Status Date / Time gabapentin Allergy Severe thrombcytop Verified 06/22/22 09:48 enia phenylpropanolamine Allergy Severe Hives Verified 06/22/22 09:48 [From Dimetapp (brompheniramine-PPA)] brompheniramine Allergy Intermediate Rash Verified 06/22/22 09:48 dextromethorphan Allergy Intermediate Rash Verified 06/22/22 09:48 diphenhydramine Allergy Intermediate Rash Verified 06/22/22 09:48 phenylephrine Allergy Intermediate Rash Verified 06/22/22 09:48 pseudoephedrine Allergy Intermediate Rash Verified 06/22/22 09:48 guaifenesin Allergy Unknown SWELLING Verified 06/22/22 09:48 AND RASH Review of Systems Review of Systems: Gen.: Denies fevers or chills Eyes: Denies eye pain or visual change ENT: Denies congestion Respiratory: Denies shortness of breath or cough CV: Denies chest pain or palpitations GI: Reports rectal bleeding. Denies abdominal pain nausea, emesis or diarrhea denies burning, urgency, frequency or hematuria Musculoskeletal: Denies back pain or muscle pain Neuro: Denies numbness, tingling, weakness or focal weakness Skin: Denies rash Except as documented, all other systems reviewed and negative PMFSH Past Medical History Medical History Asthma BMI greater than 40 Chronic foot pain Depression Hyperlipidemia Left knee DJD Persistent headaches Surgical History Surgical History History of foot surgery (2019) Several right foot surgeries for removal of bone spurs and ?cysts? History of knee surgery (2005) History of left knee replacement History of partial hysterectomy S/P knee replacement (~2020) Family History Family History Other Family history of arthritis Social History Social History Social History: Patient is single, no children. She works at [employer]. Surrogate decision maker: Tawana Nick, mother. Code status: Full code. Smoking status: Never smoker Second hand tobacco smoke exposure: No Alcohol intake: never Substance use: never Additional living arrangements comments: The patient lives in [place]. 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 Exam Narrative: APPEARANCE: Well appearing, no pain in distress, well-nourished. Head: Normocephalic and atraumatic. EYES: PERRLA/EOMI, conjunctivae clear NOSE: No nasal drainage EARS: External ear normal in appearance THROAT: Oropharynx is clear. Mucous membranes are moist. NECK: Supple. No adenopathy, no masses. RESPIRATORY: Airway patent, respirations nonlabored. Clear
[2022-06-22 10:21] LABS: Basophils Absolute Auto 0.1 K/mm3 (0.0-0.1); Basophils Percent Auto 1.1 % (0.2-1.2); Eosinophils Absolute Auto 0.2 K/mm3 (0-0.3); Eosinophils Percent Auto 3.5 % (0-4.4); Hemoglobin 14.4 g/dL (12.0-15.0); Immature Granulocyte Absolute 0.01 K/mm3 (0.00-0.031); Immature Granulocyte Percent A 0.2 % (0-0.5); Lymphocytes Percent Auto 28.1 % (18.3-44.2); Mean Corpuscular HGB Conc 35.1 g/dl (32-36); Mean Corpuscular Volume 88.4 fl (80-100); Monocytes Absolute Auto 0.3 K/mm3 (0.1-0.6); Monocytes Percent Auto 6.7 % (2.6-8.5); Neutrophils Absolute Auto 2.8 K/mm3 (1.3-6.7); Neutrophils Percent Auto 60.4 % (45.5-73.1); Platelet Count Result 261 k/mm3 (150-375); Red Blood Count 4.64 M/mm3 (4.2-5.4); Red Cell Distribution Width 12.8 % (11.5-14.5); White Blood Count 4.6 K/mm3 (4.5-10.0)
[2022-06-22 10:32] LABS: Anion Gap 10 mmol/L (8-16); Blood Urea Nitrogen 12 mg/dL (7-17); Calcium 9.2 mg/dL (8.4-10.2); Carbon Dioxide 26 mmol/L (22-30); Chloride 105 mmol/L (98-107); Estimated CRCL calculation 102 ml/min; Estimated Glomerular Filt Rate > 60; Glucose 85 mg/dL (65-110); Potassium 4.1 mmol/L (3.4-5.0); Sodium 141 mmol/L (137-145)
== END 2022-06-22 11:06 | disposition home or self-care (01) ==
PROVIDERS: Physician Assistant; Emergency Provider Emergency Medicine; PCP Family Medicine
DX: K64.4 Residual hemorrhoidal skin tags (principal); J45.909 Unspecified asthma, uncomplicated; E78.5 Hyperlipidemia, unspecified; M17.12 Unilateral primary osteoarthritis, left knee; Z96.652 Presence of left artificial knee joint; Z90.711 Acquired absence of uterus with remaining cervical stump
CPT/HCPCS: 36415; 80048; 85025; 86850; 86900; 86901; 99283

== ENCOUNTER 2022-08-06 00:23 | Day surgery (SDC) | payer OTHER, SELFPAY ==
[2022-07-28 15:00] VITALS: BMI 25.5
[2022-08-06 10:54] VITALS: BP 150/88; PULSE 84; RESP 20; TEMP 36.1; O2SAT 98; BMI 43.2
[2022-08-06] MEDS: LACTATED RINGERS 1,000 ML 150 ML IV CONT (11:08)
--- NOTE | 2022-08-06 11:39 | WPDANESEPPF ---
Anes - Initial Pre Proc Eval Procedure: Operation Date: 08/06/22 13:00 Proposed Procedures p Screening Colonoscopy - Jorge Hong MD s [facility] Hemorrhoid Treatment - Jorge Hong MD Date/Time: 08/06/22 11:39 Surgeon: Jorge Hong MD Pre Op Diagnosis: neoplasm screening; hemorrhoids Patient Data Age: 52 Gender: F Height: 1.7 m Weight: 125.2 kg Last Vital Signs Temp 96.9 F L 08/06/22 10:54 Pulse 84 08/06/22 10:54 Resp 20 08/06/22 10:54 BP 150/88 H 08/06/22 10:54 Pulse Ox 98 08/06/22 10:54 O2 Del Method Room Air 08/06/22 10:54 Allergies Allergy/AdvReac Type Severity Reaction Status Date / Time gabapentin Allergy Severe thrombcytop Verified 08/06/22 10:54 enia phenylpropanolamine Allergy Severe Hives Verified 08/06/22 10:54 [From Dimetapp (brompheniramine-PPA)] brompheniramine Allergy Intermediate Rash Verified 08/06/22 10:54 dextromethorphan Allergy Intermediate Rash Verified 08/06/22 10:54 diphenhydramine Allergy Intermediate Rash Verified 08/06/22 10:54 phenylephrine Allergy Intermediate Rash Verified 08/06/22 10:54 pseudoephedrine Allergy Intermediate Rash Verified 08/06/22 10:54 guaifenesin Allergy Unknown SWELLING Verified 08/06/22 10:54 AND RASH Home Medications Medication Instructions Recorded Confirmed Type cholecalciferol (vitamin D3) 25 25 mcg PO HS 01/05/20 08/06/22 History mcg (1,000 unit) capsule mecobalamin (vitamin B12) 1,000 1,000 mcg PO HS 01/05/20 08/06/22 History mcg chewable tablet albuterol sulfate 90 mcg/actuation 1 - 2 puff inhalation Q4H PRN 06/05/21 08/06/22 Rx aerosol inhaler (ProAir HFA) shortness of breath #8 grams budesonide-formoterol HFA 160 2 puff inhalation Q12H 06/11/21 08/06/22 History mcg-4.5 mcg/actuation aerosol inhaler (Symbicort) bupropion HCl (smoking deter) 150 150 mg PO BID #180 tabs 05/08/22 08/06/22 Rx mg tablet,12 hr sustained-release(smoking deterrent) hydrocortisone 1 % topical cream 1 applic topical TID PRN 06/22/22 08/06/22 Rx (Preparation H Hydrocortisone) hemorrhoids #28.35 grams celecoxib 200 mg capsule See Rx Instructions .Route 06/30/22 08/06/22 Rx .COMPLEX #30 caps Patient hx anesthesia problems: none Family hx anesthesia problems: none Results Review: All pre-operative results and documents have been reviewed as part of the pre-operative evaluation. [facility] Past Medical History Medical History (Updated 07/10/22 @ 14:27 by Jroge Hong MD) Asthma BMI greater than 40 Chronic foot pain Colon cancer screening Depression Hyperlipidemia Left knee DJD Persistent headaches Surgical History Surgical History History of foot surgery (2018) Several right foot surgeries for removal of bone spurs and ?cysts? History of knee surgery (2005) History of left knee replacement History of partial hysterectomy S/P knee replacement (~2020) Family History Family History Other Family history of arthritis Social History Social History Social History: Patient is single, no children. She works at [employer]. Surrogate decision maker: Tawana Nick, mother. Code status: Full code. Smoking status: Never smoker Second hand tobacco smoke exposure: No Alcohol intake: never Substance use: never Substance use type: does not use Lack of Transportation: YES Lack of Food: Never True Current Housing: Decline to Answer Concerned About Future Housing: No Difficulty Paying Gas/Electric Bills: No Difficulty Paying for Meds: No Currently Unemployed: No Education: High School Diploma/GED Difficulty w/ Childcare or Family Care: No Living arrangements: with family Additional living arrangements comments: The aide
--- NOTE | 2022-08-06 12:03 | WPDHPUPDATE1 ---
History and Physical Update Update Date/Time: 08/06/22 12:03 History and Physical has been reviewed, including an updated exam of the patient. There are NO changes in the patient's condition. Risks, benefits, and alternatives have been discussed and questions answered. Patient agrees to proceed with procedure.
--- NOTE | 2022-08-06 12:22 | W.PM.PROC2 ---
Procedure Note - Detailed Date of Procedure 08/06/22 Pre-op Diagnosis hemorrhoids Post-op Diagnosis Same Procedure Performed IRC of internal hemorrhoids Surgeon Jorge Hong MD Anesthesia MAC Description of Procedure found grade II internal hemorrhoids, no bleeding, no fissure. I introduced anoscope and then IRC probe, hemorrhoids treated 1.5 seconds x7
[2022-08-06 12:23] VITALS: BP 120/61; PULSE 75; RESP 17; O2SAT 100
[2022-08-06 12:33] VITALS: BP 127/66; PULSE 71; RESP 15; O2SAT 100
[2022-08-06 12:43] VITALS: BP 140/85; PULSE 76; RESP 20; O2SAT 100
== END 2022-08-06 12:53 | disposition home or self-care (01) ==
PROVIDERS: PCP Family Medicine; Visit Provider Internal Medicine Gastroenterology
PROC: 0DJD8ZZ Inspection of Lower Intestinal Tract, Via Natural or Artificial Opening Endoscopic (ICD-10-PCS; CPT 45378; principal; 2022-08-06 13:00)
PROC: (CPT 46930; 2022-08-06 13:00)
DX: Z12.11 Encounter for screening for malignant neoplasm of colon (principal); K64.1 Second degree hemorrhoids; K63.5 Polyp of colon; J45.909 Unspecified asthma, uncomplicated; E78.5 Hyperlipidemia, unspecified; F32.A Depression, unspecified; E66.01 Morbid (severe) obesity due to excess calories; Z68.41 Body mass index [BMI] 40.0-44.9, adult; Z79.51 Long term (current) use of inhaled steroids
CPT/HCPCS: 46930; 45385; 88305; J2704; J7120

== ENCOUNTER 2022-08-21 10:12 | Outpatient (CLI) | payer OTHER, SELFPAY ==
[2022-08-21 19:01] LABS: Alanine Aminotransferase 22 U/L (6-35); Albumin Level 4.5 g/dL (3.5-5.1); Alkaline Phosphatase 60 U/L (38-126); Anion Gap 5 mmol/L (8-16); Aspartate Amino Transferase 26 U/L (14-36); Bilirubin,Total 0.6 mg/dL (0.2-1.3); Blood Urea Nitrogen 16 mg/dL (7-17); Calcium 9.4 mg/dL (8.4-10.2); Carbon Dioxide 30 mmol/L (22-30); Chloride 101 mmol/L (98-107); Cholesterol 207 mg/dL (0-200); Estimated Glomerular Filt Rate > 60; Glucose 86 mg/dL (65-110); HDL Direct 43 mg/dL; Potassium 4.2 mmol/L (3.4-5.0); Sodium 136 mmol/L (137-145); Triglycerides 138 mg/dL (<150)
[2022-08-21 19:12] LABS: LDL Cholesterol Direct 105 mg/dL
[2022-08-21 19:15] LABS: Vitamin D 25 Hydroxy 39.8 ng/mL
== END 2022-08-21 10:13 | disposition home or self-care (01) ==
LOC: ANHGOSHLAB 10:15
PROVIDERS: PCP Family Medicine; Visit Provider Nurse Practitioner Family
DX: R74.8 Abnormal levels of other serum enzymes (principal); Z13.220 Encounter for screening for lipoid disorders; E55.9 Vitamin D deficiency, unspecified
CPT/HCPCS: 36415; 80053; 80061; 82306

== ENCOUNTER 2023-02-12 10:32 | Outpatient (CLI) | payer OTHER, SELFPAY ==
[2023-02-12 10:47] LABS: Hematocrit 41.6 % (37.0-47.0); Hemoglobin 14.8 g/dL (12.0-15.0); Mean Corpuscular HGB Conc 35.6 g/dl (32-36); Mean Corpuscular Hemoglobin 30.8 pg (26-34); Mean Corpuscular Volume 86.7 fl (80-100); Mean Platelet Volume 10.6 fl (7.4-10.4); Platelet Count Result 261 k/mm3 (150-375); Red Cell Distribution Width 12.4 % (11.5-14.5); White Blood Count 5.8 K/mm3 (4.5-10.0)
== END 2023-02-12 10:33 | disposition home or self-care (01) ==
LOC: ANHLAB 10:34
PROVIDERS: PCP Family Medicine; Visit Provider Internal Medicine Hematology & Oncology
DX: D69.3 Immune thrombocytopenic purpura (principal)
CPT/HCPCS: 36415; 85027

== ENCOUNTER 2023-02-19 09:15 | Outpatient (CLI) | payer OTHER, SELFPAY ==
[2023-02-19 19:20] LABS: Alanine Aminotransferase 20 U/L (6-35); Albumin Level 4.6 g/dL (3.5-5.1); Alkaline Phosphatase 53 U/L (38-126); Anion Gap 5 mmol/L (8-16); Aspartate Amino Transferase 33 U/L (14-36); Bilirubin,Total 0.8 mg/dL (0.2-1.3); Blood Urea Nitrogen 17 mg/dL (7-17); Calcium 9.6 mg/dL (8.4-10.2); Carbon Dioxide 32 mmol/L (22-30); Chloride 103 mmol/L (98-107); Cholesterol 184 mg/dL (0-200); Estimated Glomerular Filt Rate > 60; Glucose 79 mg/dL (65-110); HDL Direct 43 mg/dL; Potassium 4.1 mmol/L (3.4-5.0); Sodium 140 mmol/L (137-145); Triglycerides 137 mg/dL (<150)
[2023-02-19 19:31] LABS: LDL Cholesterol Direct 102 mg/dL
[2023-02-19 20:16] LABS: Hemoglobin A1C 4.6 % (<5.7)
== END 2023-02-19 09:16 | disposition home or self-care (01) ==
LOC: ANHGOSHLAB 09:16
PROVIDERS: PCP Family Medicine; Visit Provider Nurse Practitioner Family
DX: I10 Essential (primary) hypertension (principal); Z13.1 Encounter for screening for diabetes mellitus; Z13.220 Encounter for screening for lipoid disorders; Z13.29 Encounter for screening for other suspected endocrine disorder
CPT/HCPCS: 36415; 80053; 80061; 83036; 84443

== ENCOUNTER → 2023-04-27 10:28 | Outpatient (CLI) | payer OTHER, SELFPAY ==
--- NOTE | ~2023-04-27 | XR_ITS ---
Right foot Technique: AP and lateral district plant superintendent views were obtained. Clinical History: Osteoarthritis Findings: No acute fracture or dislocation is seen. There is orthopedic fusion across the first metat arsophalangeal joint. Remaining joint spaces are intact. Soft tissues are unremarkable. Impression: No acute abnormality. Orthopedic fusion across the first MTP joint. Reviewed, dictated and finalized at location . Impression: No acute abnormality. Orthopedic fusion across the first MTP joint.
--- NOTE | ~2023-04-27 | XR_ITS ---
Left foot Technique: AP and lateral standing views were obtained. Clinical History: Osteoarthritis Findings: No acute fracture or dislocation is seen. Osseous alignment is anatomic. Joint spaces are p reserved without erosive or degenerative change. Soft tissues are unremarkable. Impression: Unremarkable left foot radiographs. Reviewed, dictated and finalized at location . Impression: Unremarkable left foot radiographs.
--- NOTE | ~2023-04-27 | XR_ITS ---
Bilateral Hands Technique: Bilateral PA, oblique, and lateral views, and ball-catcher's view were obtained. Clinical History: Osteoarthritis Findings: No acute fracture or dislocation is seen. Osseous alignment is anatomic. Joint spaces are p reserved. Soft tissues are unremarkable. Impression: Unremarkable bilateral hand radiographs. Reviewed, dictated and finalized at location . Impression: Unremarkable bilateral hand radiographs.
== END ==
PROVIDERS: PCP Internal Medicine; Visit Provider Internal Medicine
DX: M19.90 Unspecified osteoarthritis, unspecified site (principal)
CPT/HCPCS: 73130; 73620

== ENCOUNTER → 2023-05-05 14:16 | Outpatient (CLI) | payer OTHER, SELFPAY ==
--- NOTE | ~2023-05-05 | MM_ITS ---
EXAMINATION: MM screening akhil BI w suzanne HISTORY: Screening mammogram TECHNIQUE: Craniocaudal and mediolateral oblique 3-D tomosynthesis images were obtained and synthetic 2-D images were generated. CAD analysis was submitted and interpreted. COMPARISON: 02/12/2022 bilateral screening mammogram 08/10/2020 diagnostic right mammogram and limited right breast ultrasound examination, reported negat mary jane 07/11/2020, 05/20/2019 bilateral screening mammogram examinations BREAST PARENCHYMAL COMPOSITION: There are scattered areas of fibroglandular density. FINDINGS: There is no evidence of suspicious mass, calcification, or architectural distortion to sugg est malignancy in either breast. There has been no suspicious interval change. IMPRESSION: 1. No mammographic evidence of malignancy. 2. Recommend routine screening mammography in one year. BI-RADS Category 1: Negative Reviewed, dictated and finalized at location A.
== END ==
PROVIDERS: PCP Nurse Practitioner Family; Visit Provider Nurse Practitioner Family
DX: Z12.31 Encounter for screening mammogram for malignant neoplasm of breast (principal)
CPT/HCPCS: 77063; 77067

== ENCOUNTER 2023-05-11 11:56 | Outpatient (CLI) | payer OTHER, SELFPAY ==
--- NOTE | 2023-05-11 12:41 | ECG_ITS ---
Measurements Intervals [place] Rate: 69 P: 48 NV: 172 QRS: 1 QRSD: 93 T: 32 QT: 375 QTc: 404 Interpretive Statements SINUS RHYTHM LOW QRS VOLTAGE IN PRECORDIAL LEADS INCOMPLETE RIGHT BUNDLE BRANCH BLOCK CONSIDER ANTERIOR INFARCT, AGE INDETERMINATE CONSIDER INFERIOR INFARCT, AGE INDETERMINATE ABNORMAL ECG COMPARED TO ECG 07/01/2021 15:09:05 NO SIGNIFICANT CHANGES Electronically Signed On 05-11-2023 13:46:02 CDT by Dennis Corbett D.O.
[2023-05-11 14:52] LABS: Appearance Urine Cloudy (Clear); Bacteria Urine 2+ /hpf; Bilirubin Urine Negative (Negative); Blood Urine Negative (Negative); Color Urine Yellow (Yellow); Glucose Urine UA Negative (Negative); Ketones Urine Negative (Negative); Leukocyte Esterase Ur 1+ LEU/UL (Negative); Nitrate Urine Negative (Negative); Non Pathogenic Casts 0-2; Protein Urine Negative (Negative); RBC Urine 0-2 /hpf (0-2); Specific Grav Ur 1.011 (1.001-1.035); Squamous Epithelial Cell Urine Many /hpf (Few); Urobilinogen Urine 0.2 mg/dL (<2.0); pH Urine 5.5 (5.0-9.0)
[2023-05-11 14:58] LABS: Add Urine Microscopic? YES
== END 2023-05-11 11:57 | disposition home or self-care (01) ==
PROVIDERS: PCP Nurse Practitioner Family; Visit Provider Orthopaedic Surgery
DX: D69.6 Thrombocytopenia, unspecified (principal); E78.5 Hyperlipidemia, unspecified; M17.11 Unilateral primary osteoarthritis, right knee; R94.31 Abnormal electrocardiogram [ECG] [EKG]; I45.19 Other right bundle-branch block; N39.0 Urinary tract infection, site not specified
CPT/HCPCS: 81001; 87086; 87088; 93005

== ENCOUNTER → 2023-05-20 14:02 | Outpatient (CLI) | payer OTHER, SELFPAY ==
--- NOTE | ~2023-05-20 | MR_ITS ---
MRI of the left foot Clinical history: Pain TECHNIQUE: Axial T1-weighted, T1 fat-sat, and T2 fat-sat images, sagittal T1-weighted and STIR images , and coronal T1-weighted and proton-density fat-sat images were performed. Following intravenous adm inistration of 20 cc MultiHance gadolinium, T1-weighted fat-sat imaging was performed in the axial, c oronal, and sagittal planes. FINDINGS: Bone marrow signals are unremarkable. No evidence for fracture, bone marrow edema, or osteo myelitis. There are mild osteoarthritic changes at the tarsometatarsal joints and talonavicular artic ulation. No other significant degenerative joint disease identified. No erosive or inflammatory arthr opathy identified. No significant joint effusion identified. Visual is tendons are intact. Visualized musculature unremarkable. Plantar fascia is intact. No soft tissue mass or fluid collection identified. Supporting ligaments at the ankle, including the anterior and posterior talofibular ligaments, calcan eofibular ligament, and deltoid ligament, are intact. Syndesmotic ligaments of the distal tibiofibula r syndesmosis region are intact. Tendons about the ankle are intact. No abnormal postcontrast enhancement identified. IMPRESSION: Mild osteoarthritic changes of the tarsal metatarsal joints and talonavicular articulation. No other significant abnormality identified. Reviewed, dictated and finalized at [facility]. IMPRESSION: Mild osteoarthritic changes of the tarsal metatarsal joints and talonavicular a rticulation. No other significant abnormality identified.
== END ==
PROVIDERS: PCP Podiatrist Foot & Ankle Surgery; Visit Provider Internal Medicine
DX: M79.672 Pain in left foot (principal)
CPT/HCPCS: 73720; A9577

== ENCOUNTER 2023-06-04 07:33 | Outpatient (CLI) | payer OTHER, SELFPAY ==
[2023-06-04 09:07] LABS: Partial Thromboplastin Time 33.8 SECONDS (22.3-36.8); Prothrombin Time 13.1 Seconds (11.1-14.7)
[2023-06-04 10:11] LABS: Urine Cotinine NEGATIVE
[2023-06-04 10:17] LABS: Hemoglobin A1C 4.4 % (<5.7)
== END 2023-06-04 07:34 | disposition home or self-care (01) ==
LOC: ANHSURGERY 07:39
PROVIDERS: PCP Nurse Practitioner Family; Visit Provider Orthopaedic Surgery
DX: Z01.818 Encounter for other preprocedural examination (principal); M17.11 Unilateral primary osteoarthritis, right knee
CPT/HCPCS: 80307; 83036; 85610; 85730; 86850; 86900; 86901; 87081

== ENCOUNTER 2023-06-11 16:15 | Observation (INO) | payer OTHER, SELFPAY ==
[2023-06-04 07:44] VITALS: BMI 35.5
--- NOTE | 2023-06-04 08:06 | PC.NURSE ---
Report to the Outpatient Waiting Room, entrance under the green pavilion located off [facility], at time __0900 on date __06/10/23 . Planned Procedure Time: _1100 . Time changes happen often and if your time is changed the preop area will call you the afternoon before. - You and your visitor will be asked to self-screen and do not enter if you have any COVID symptoms. - A mask is optional within the hospital at this time. Patients may have clear liquids (water, carbonated beverages, clear teas, apple juice) until 3 hours prior to surgery with a maximum of 20 ounces. - No food from midnight until time of surgery - Infants may have breast milk until 4 hours before surgery, formula 6 hours prior to surgery. - Children will be allowed to drink immediately following surgery. If applicable, please bring a bottle or sippy cup to assist with drinking. Juice, water, soda, and popsicles are readily available. For infants on formula, please bring formula the day of surgery. Pacifiers are allowed. Take the following medications with a SIP of water the morning of surgery: ___SYMBICORT INHALER,_DULOXETINE DO NOT STOP ANY OF YOUR OTHER PRESCRIPTION MEDICATIONS PRIOR TO SURGERY ?EXCEPT THE FOLLOWING Medications to discontinue per physician __OZEMPIC HOLD 10 DAYS PRE OP PER ANESTHESIA. LAST DOSE 05/29/23. ALL VITAMINS AND SUPPLEMENTS 3 DAYS PRE OP.LAST DOSE 06/06/23 Please no make-up, nail sami, hairspray, perfume, deodorant, or body powder the day of surgery. No jewelry (including any body piercings) or valuables the day of surgery, leave them at home. Please take a shower or bath the night before, or the morning of, surgery with an antibacterial soap. Wear comfortable, loose fitting clothing. Children are encouraged to wear pajamas. - Jewelry must be removed prior to entering the operating room. Rings and piercings that are not removed may be cut off. - The hospital will not accept responsibility for valuables. - Please leave all valuables, including medications, at home the day of surgery. If you are going home after surgery, a licensed swing driver must drive you home. - NO public transportation without another adult if you receive anesthesia. - We recommend that an adult stay with you for 24 hours following discharge. - We also recommend that you do not drive, make important decision, drink alcoholic beverages, or take any drugs that were not prescribed by your health care provider for at least 24 hours after your discharge time. For Pediatric surgeries, we recommend two adults accompany the child home. Follow any additional instructions given to you from your surgeon. If you or anyone in your household have experienced Covid symptoms in the past week, please notify your surgeon or the nurse liaison at the phone number below for possible testing. VERBAL AND WRITTEN instructions given to PATIENT and asked if any additional questions and then verbalized understanding. Patient advised to call surgeon office or pre surgery nurse liaison [phone] if any additional questions.
[2023-06-04 08:29] VITALS: BP 111/85; PULSE 80; RESP 18; TEMP 36.4; O2SAT 100
[2023-06-10] VITALS (14 sets, daily range): BP systolic 102–166; BP diastolic 52–75; PULSE 57–98; RESP 12–18; TEMP 36.2–36.6; O2SAT 94–100; BMI 35.4
--- NOTE | 2023-06-10 07:19 | WPDHPUPDATE1 ---
History and Physical Update Update Date/Time: 06/10/23 07:19 History and Physical has been reviewed, including an updated exam of the patient. There are NO changes in the patient's condition. Risks, benefits, and alternatives have been discussed and questions answered. Patient agrees to proceed with procedure.
[2023-06-10] MEDS: LACTATED RINGERS 1,000 ML 30 ML IV CONT ×2 (10:29→13:43)
[2023-06-10] MEDS: ACETAMINOPHEN 500 MG TABLET 1000 MG PO (10:29)
[2023-06-10] MEDS: TRANEXAMIC ACID 1,000MG/ISO100 1,000 MG/100 ML BAG 200 MG IVPB (10:30)
--- NOTE | 2023-06-10 11:00 | WPDANESEPPF ---
Anes - Initial Pre Proc Eval Procedure: Operation Date: 06/10/23 11:00 Proposed Procedures p Right Total Knee Arthroplasty - Popeye Collins MD Date/Time: 06/10/23 11:00 Surgeon: Popeye Collins MD Pre Op Diagnosis: right knee DJD Patient Data Age: 53 Gender: F Height: 1.7 m Weight: 102.7 kg Last Vital Signs Temp 36.6 C 06/10/23 09:54 Pulse 98 06/10/23 09:54 Resp 16 06/10/23 09:54 BP 113/71 06/10/23 09:54 Pulse Ox 100 06/10/23 09:54 O2 Del Method Room Air 06/10/23 09:54 Allergies Allergy/AdvReac Type Severity Reaction Status Date / Time gabapentin Allergy Severe thrombcytop Verified 06/10/23 09:17 enia phenylpropanolamine Allergy Severe Hives Verified 06/10/23 09:17 [From Dimetapp (brompheniramine-PPA)] brompheniramine Allergy Intermediate Rash Verified 06/10/23 09:17 dextromethorphan Allergy Intermediate Rash Verified 06/10/23 09:17 diphenhydramine Allergy Intermediate Rash Verified 06/10/23 09:17 gluten Allergy Intermediate Nausea and Verified 06/10/23 09:18 Vomiting phenylephrine Allergy Intermediate Rash Verified 06/10/23 09:17 pseudoephedrine Allergy Intermediate Rash Verified 06/10/23 09:17 guaifenesin Allergy Unknown SWELLING Verified 06/10/23 09:17 AND RASH Home Medications Medication Instructions Recorded Confirmed Type cholecalciferol (vitamin D3) 25 25 mcg PO HS 01/05/20 06/10/23 History mcg (1,000 unit) capsule budesonide-formoterol HFA 160 2 puff inhalation Q12H 06/11/21 06/10/23 History mcg-4.5 mcg/actuation aerosol inhaler (Symbicort) hydrocortisone 1 % topical cream 1 applic topical TID PRN 06/22/22 06/04/23 Rx (Preparation H Hydrocortisone) hemorrhoids #28.35 grams albuterol sulfate 90 mcg/actuation 1 - 2 puff inhalation Q4H PRN 11/03/22 06/04/23 Rx aerosol inhaler (ProAir HFA) shortness of breath #8 grams duloxetine 20 mg capsule,delayed 20 mg PO BID #90 caps 05/11/23 06/10/23 Rx release semaglutide 0.25 mg or 0.5 mg (2 0.25 mg (0.368 mL) subcut WEEKLY 05/22/23 06/10/23 Rx mg/3 mL) subcutaneous pen injector #3 mL (Ozempic) chlorhexidine gluconate 4 % 1 applic topical DAILY #237 mL 06/02/23 06/10/23 Rx topical liquid (Hibiclens) cyanocobalamin (vitamin B-12) 1,000 mcg PO DAILY 06/04/23 06/10/23 History 1,000 mcg tablet celecoxib 200 mg capsule See Rx Instructions .Route 06/08/23 06/10/23 Rx .COMPLEX #30 caps Patient hx anesthesia problems: none Family hx anesthesia problems: none Results Review: All pre-operative results and documents have been reviewed as part of the pre-operative evaluation. [facility] Past Medical History Medical History Abnormal mammogram of right breast Asthma BMI greater than 40 Chronic foot pain Colon cancer screening (~07/2022) Degenerative joint disease of knee Depression Foot pain Hyperlipidemia Inflammatory arthritis Left knee DJD Left knee pain Persistent headaches Surgical History Surgical History History of foot surgery (2018) Several right foot surgeries for removal of bone spurs and ?cysts? History of knee surgery (2005) History of left knee replacement History of partial hysterectomy S/P knee replacement (~2020) Status post right foot surgery (~04/16/22) Mohinder and screw in right great toe Family History Family History Other Family history of arthritis Social History Social History Social History: Patient is single, no children. She works at [employer]. Surrogate decision maker: Tawana Nick, mother. Code status: Full code. Smoking status: Never smoker Second hand tobacco smoke exposure: No Additional smoking assessment comments: DENIES ANY FORM OF TOBACCO USE Alcohol intake: never Substance use: never
--- NOTE | 2023-06-10 11:21 | WPDANESPNB ---
Anes - Peripheral Nerve Block Date/Time: 06/10/23 11:21 I have discussed with the patient/family/POA the placement of a peripheral nerve block for post-operative pain management, including associated risks, benefits, complications, and side effects. Alternative methods of post-operative analgesia were detailed. Questions were solicited and answers provided to the satisfaction of the patient/family/POA. Time-Out: A pre-procedural Time-Out was completed immediately before starting the procedure and confirmed: Patient Identification, Site, Procedure, Patient Position and the Availability of Requisite Equipment. Clinical Indications: Acute post-operative pain management requested by the operative surgeon. Nerve Block Insertion Note Anes-nerve block: femoral right Patient position: supine Skin prep: chlorhexidine Needle: 22 gauge, stimulating, insulated echogenic needle. Needle length: 50 mm Technique: nerve stimulation lost at (mA) (0.4) Injectate: bupivacaine 0.5% with epi 5 mcg/ml (30cc no epi) and dexamethasone (mg) (8) Observations: tolerated well Complications: none Procedure start time:: 1114 Procedure end time:: 1119
[2023-06-10] MEDS: ceFAZolin 2 GM/D5W 50 ML 2 GM/50 ML BAG IVPB ×2 (11:30→18:44)
[2023-06-10] MEDS: TRANEXAMIC ACID 1,000 MG/10 ML AMPUL 1000 MG IV PUSH (12:47)
--- NOTE | 2023-06-10 13:54 | W.PM.PROC2 ---
Procedure Note - Detailed Date of Procedure 06/10/23 Pre-op Diagnosis right knee DJD Post-op Diagnosis Same Procedure Performed R TKA Surgeon Popeye Collins MD Anesthesia General Description of Procedure THE RIGHT KNEE WAS PREPPED AND DRAPED IN THE STERILE FASHION. A MIDLINE SKIN INCISION WAS MADE. A MEDIAL PARAPATELLAR ARTHROTOMY WAS MADE. THE PATELLA WAS EVERTED. THERE WAS TRICOMPARTMENT DJD. THERE WAS MINIMAL PATELLA DJD. AN INTRAMEDULLARY KELLY WAS PLACED IN THE FEMUR. A DISTAL FEMORAL CUT WAS MADE IN 5 DEGREES OF VALGUS REMOVING APPROXIMATELY 9 MM OF BONE FROM THE DISTAL FEMUR. THE FEMUR WAS SIZED TO 65. A 65 FEMORAL CUTTING BLOCK WAS PLACED IN 3 DEGREES OF EXTERNAL ROTATION AND IN ALIGNMENT WITH SAMIA'S LINE AND THE TRANSEPICONDYLAR AXIS. ANTERIOR POSTERIOR AND CHAMFER CUTS WERE MADE. THE CUTS WERE EXCELLENT. NEXT AN INTRAMEDULLARY CUTTING GUIDE WAS PLACED IN THE TIBIA. A TRANS TIBIAL CUT WAS MADE ALONG THE LONG AXIS OF THE TIBIA. APPROXIMATELY 10 MM OF BONE WAS REMOVED FROM THE HIGH SIDE OF THE TIBIA. THE TIBIA WAS THEN PLANED TO A SMOOTH SURFACE. POSTERIOR FEMORAL OSTEOPHYTES WERE REMOVED FROM THE FEMORAL CONDYLES. A 71 TIBIAL TRIAL WAS PLACED IN ALIGNMENT WITH THE 1/3 MEDIAL ASPECT OF THE TIBIAL TUBERCLE. THEN A 65 FEMORAL TRIAL COMPONENT WAS PLACED. BOTH HAD EXCELLENT FITS. EVENTUALLY A 12 MM CR POLYETHYLENE TRIAL COMPONENT WAS PLACED. THE KNEE WAS TAKEN THROUGH A RANGE OF MOTION. THE KNEE CAME OUT TO FULL EXTENSION. THERE WAS NO ABNORMAL TILT TO THE PATELLA. THERE WAS GOOD A/P AND VARUS/VALGUS STABILITY. THERE WAS NO EXCESSIVE ROLL BACK WITH FLEXION. THE TRIAL COMPONENTS WERE REMOVED. THEN A 65 FEMORAL COMPONENT AND 71 TIBIAL COMPONENT WITH A 12 CR POLYETHYLENE COMPONENT WERE CEMENTED INTO PLACE. ONCE THE CEMENT WAS HARD THE KNEE WAS TAKEN THROUGH A ROM AGAIN AND FOUND TO BE STABLE WITH NO PATELLA TILT NO EXCESSIVE ROLL BACK WITH FLEXION AND GOOD STABILITY WITH COMPLETE AND FULL EXTENSION. THE KNEE WAS IRRIGATED WITH STERILE BETADINE AND WATER FOR ABOUT 3 MINUTES. THE BLEEDERS WERE CAUTERIZED. THE ARTHROTOMY WAS REPAIRED WITH NUMBER 1 VICRYL. THE SUB CUTANEOUS LAYER AND SKIN WITH 2-0 VICRYL AND 2-0 QUIL ANDTHEN DERMABOND. THE WOUND WAS WASHED AND A STERILE DRESSING WAS APPLIED. PATIENT WAS EXTUBATED. Estimated Blood Loss 175 Pathology None sent Complications No immediate complications Condition Stable Disposition PACU
[2023-06-10] MEDS: KETOROLAC 30 MG/ML VIAL (*BKC) IV PUSH (14:33)
[2023-06-10] MEDS: fentaNYL CITRATE INJ (*CRX) 100 MCG/2 ML VIAL 25 MCG IV PUSH ×2 (14:53→14:55)
--- NOTE | 2023-06-10 15:20 | ADMGEN ---
This patient, Tawana Hall, was admitted to 2 Medical Room 241-01. Patient/family oriented to hospital policies and general routines including ID bracelet, bed and alarms, visiting hours, pain management, procedures, bathroom and other care routines, personal items, smoking policy, room service/diet, and visiting hours. Information on how to activate the Rapid Response Team has been discussed. Patient/Family are encouraged to report perceived risks to care and to ask questions if they do not understand what they are told or what they should do.
[2023-06-10] MEDS: KETOROLAC 15 MG/ML VIAL (*BKC) IV PUSH ×2 (15:33→18:44)
[2023-06-10] MEDS: SODIUM CHLORIDE 0.9% IV 1,000 ML 125 ML IV CONT (15:33)
[2023-06-10] MEDS: SENNA/DOCUSATE SODIUM TABLET 2 TAB PO (17:37)
[2023-06-10] MEDS: DULoxetine HCL 20 MG CAPSULE.DR PO (17:37)
[2023-06-10] MEDS: oxyCODONE/ACETAMINOPHEN (*CRX) 5-325 MG TABLET 2 TABLET PO (17:37)
[2023-06-10] MEDS: ASPIRIN 325 MG ENTERIC TABLET PO (21:11)
[2023-06-10] MEDS: FAMOTIDINE 20 MG TABLET PO (21:12)
[2023-06-10] MEDS: diazePAM (*CRX) 5 MG TABLET PO (21:13)
[2023-06-10] MEDS: oxyCODONE/ACETAMINOPHEN (*CRX) 5-325 MG TABLET 1 TABLET PO (21:13)
[2023-06-10] MEDS: CHOLECALCIFEROL 1,000 UNITS TABLET 1000 UNITS PO (21:13)
--- NOTE | ~2023-06-11 | XR_ITS ---
EXAMINATION: [id number] DATE: 06/10/2023 13:58 INDICATION: Right total knee arthroplasty. Postop. TECHNIQUE: 2 views of right knee were obtained. COMPARISON: Right knee radiographs 01/30/2023 FINDINGS: There is a total right knee arthroplasty without patellar resurfacing in near-anatomic alig nment. Osteophytes of patella have been resected. No fracture. There is gas in the knee joint and sof t tissues, consistent with recent surgery. Anterior skin federico are noted. IMPRESSION: 1. Total right knee arthroplasty in near-anatomic alignment. Reviewed, dictated and finalized at location A.
[2023-06-11] MEDS: KETOROLAC 15 MG/ML VIAL (*BKC) IV PUSH ×3 (00:15→11:10)
[2023-06-11 00:51] VITALS: BP 109/60; PULSE 57; RESP 18; TEMP 36.1; O2SAT 96
[2023-06-11] MEDS: ceFAZolin 2 GM/D5W 50 ML 2 GM/50 ML BAG IVPB ×2 (02:38→11:09)
[2023-06-11] MEDS: oxyCODONE/ACETAMINOPHEN (*CRX) 5-325 MG TABLET 1 TABLET PO (02:38)
[2023-06-11] MEDS: ACETAMINOPHEN 500 MG TABLET 1000 MG PO (02:38)
[2023-06-11 04:51] VITALS: BP 118/63; PULSE 60; RESP 20; TEMP 36.2; O2SAT 98
[2023-06-11 06:09] LABS: Basophils Percent Auto 0.2 % (0.2-1.2); Eosinophils Percent Auto 0.1 % (0-4.4); Hematocrit 33.5 % (37.0-47.0); Hemoglobin 11.2 g/dL (12.0-15.0); Immature Granulocyte Absolute 0.06 K/mm3 (0.00-0.031); Immature Granulocyte Percent A 0.5 % (0-0.5); Lymphocytes Absolute Auto 1.56 K/mm3 (0.9-3.2); Lymphocytes Percent Auto 11.9 % (18.3-44.2); Mean Corpuscular HGB Conc 33.4 g/dl (32-36); Mean Corpuscular Hemoglobin 30.5 pg (26-34); Mean Corpuscular Volume 91.3 fl (80-100); Mean Platelet Volume 12.3 fl (7.4-10.4); Monocytes Absolute Auto 0.8 K/mm3 (0.1-0.6); Monocytes Percent Auto 6.1 % (2.6-8.5); Neutrophils Absolute Auto 10.6 K/mm3 (1.3-6.7); Neutrophils Percent Auto 81.2 % (45.5-73.1); Platelet Count Result 204 k/mm3 (150-375); Red Blood Count 3.67 M/mm3 (4.2-5.4); Red Cell Distribution Width 13.4 % (11.5-14.5); White Blood Count 13.1 K/mm3 (4.5-10.0)
[2023-06-11 06:20] LABS: Anion Gap 9 mmol/L (8-16); Blood Urea Nitrogen 16 mg/dL (7-17); Calcium 9.1 mg/dL (8.4-10.2); Carbon Dioxide 24 mmol/L (22-30); Chloride 105 mmol/L (98-107); Estimated CRCL calculation 116 ml/min; Estimated Glomerular Filt Rate > 60; Glucose 92 mg/dL (65-110); Potassium 4.1 mmol/L (3.4-5.0); Sodium 138 mmol/L (137-145)
[2023-06-11] MEDS: SENNA/DOCUSATE SODIUM TABLET 2 TAB PO ×2 (08:59→17:09)
[2023-06-11] MEDS: oxyCODONE/ACETAMINOPHEN (*CRX) 5-325 MG TABLET 2 TABLET PO ×2 (08:59→15:00)
[2023-06-11] MEDS: ASPIRIN 325 MG ENTERIC TABLET PO ×2 (08:59→20:22)
[2023-06-11] MEDS: FAMOTIDINE 20 MG TABLET PO ×2 (08:59→20:22)
[2023-06-11] MEDS: polyethylene glycoL 3350 17 GM POWD.PACK PO (08:59)
[2023-06-11] MEDS: DULoxetine HCL 20 MG CAPSULE.DR PO ×2 (08:59→17:09)
--- NOTE | 2023-06-11 09:14 | PM.PNORT ---
Progress Note: A&P Assessment and Plan (1) S/P total knee arthroplasty: Qualifiers: Laterality: right Qualified Code(s): Z96.651 - Presence of right artificial knee joint Code(s): Z96.659 - Presence of unspecified artificial knee joint Status: Acute Assessment and Plan: POD #1 : Right TKA Continue PT/OT. WBAT. Walker. HIGH FALL RISK. Continue pain control. Ice Knee. Protect skin. DVT prophylaxis with Aspirin. SCDs. Incentive Spirometry Use reviewed. Monitor Dressing. Change prior to discharge. Bowel Regimen. Dispo: Home with Home Health pending progress with PT/OT Plan Reviewed postoperative vitals, labs, radiographs, medications and physical exam with attending MD, Dr. Collins who agrees with current plan as indicated above. No furhter recommendations at this time. Subjective Subjective Date/Time Seen: 06/11/23 09:14 Post Op day: 1 Principal diagnosis: Right TKA Interval history: POD #1: Right TKA Patient doing well. Working with OT at time of exam. Plans for PT with stairs today. No new concerns. Overall, pain well controlled. Review of Systems Review of Systems: All systems reviewed & are unremarkable except as noted in HPI and below Constitutional: Constitutional: Denies fever(s) and Denies headache(s) ENT: Denies headache(s) Cardiovascular: Cardiovascular: Denies chest pain, Denies diaphoresis, Denies palpitations and Denies dyspnea Respiratory: Respiratory: Denies dyspnea Gastrointestinal: Gastrointestinal: Denies abdominal pain, Denies constipation, Denies nausea and Denies vomiting Genitourinary: Genitourinary: Reports nocturia and Denies dysuria Musculoskeletal: Musculoskeletal: Reports arthralgias (Right Knee ) and Reports joint swelling (Right Knee ) Neurologic: Denies headache(s) Endocrine: Endocrine: Denies palpitations Exam Const: General: comfortable and no acute distress Resp: Effort & Inspection: normal respiratory effort Cardio: Rate: regular rate Rhythm: regular rhythm GI: GI Palp: Yes Soft to palpation, No Tenderness to palpation present (GI) and No Guarding due to palpation present (GI) Skin: General skin exam: wounds noted Wounds: wounds noted Other: Incision c/d/i. No surrounding redness/warmth. No hematoma. Mild ecchymosis. No wound dehiscence Neuro: Cognition (Neuro): normal cognition Other: NV intact aside from block. Moves toes. Sensation intact to light touch. +ankle dorsiflexion/plantarflexion. Extrem: Right lower extremity: normal to inspection, knee Details: tenderness (diffuse, mild ) Location: of the patella, swelling (diffuse, consistent with surgical intervention ), abnormal ROM Details: pain with active ROM during, pain with passive ROM during and with range as follows (limited due to recent surgical intervention ); able to extend lower leg actively and ecchymosis (mild ), lower leg (Negative Toyin's Sign ) Details: normal to inspection; no erythema and no tenderness, ankle (+ankle dorsiflexion/plantarflexion ) Details: normal to inspection, no edema and normal ROM; no tenderness, no swelling and no ecchymosis and foot Details: normal capillary refill, normal to inspection, vascular exam Details: dorsalis pedis pulse present and motor-sensory exam Details: light-touch normal; no tenderness Left lower extremity: normal to inspection Psych: Mental Status: mental status grossly normal Objective Data Vital Signs Vital Signs: Vital Signs - 24 hr 06/10/23 09:54 06/10/23 13:43 06/10/23 13:58 Temperature 36.6 C 36.6 C Pulse Rate 98 86 90 Respiratory Rate 16 12 12 Blood Pressure 113/71 102/52 L 122/74 Pulse Oximetry 100 94 100 Oxygen Delivery Room Air Simple Face Mask Simple Face Mask Oxygen Flow Rate 6 6 06/10/23 14:00 06/10/23 14:15 06/10/23 14:30 Temperature Pulse Rate 90 93 89 Respiratory Rate 12 14 14 Blood Pressure 110/66 118/75 117/72 Pulse Oximetry 100 97 96 Oxygen Delivery Simple F
[2023-06-11 10:00] VITALS: BP 120/66; PULSE 62; RESP 19; TEMP 36.4; O2SAT 99
--- NOTE | 2023-06-11 10:15 | WPDANESPN ---
Anes - Prog Note Post-Op Date/Time: 06/11/23 10:15 Cardiovascular status: normal Respiratory status: normal Airway patency: baseline Mental status: baseline Post-Op hydration status: normal Vital Signs: Last Vital Signs Temp 97.2 F L 06/11/23 04:51 Pulse 60 06/11/23 04:51 Resp 20 06/11/23 04:51 BP 118/63 06/11/23 04:51 Pulse Ox 98 06/11/23 04:51 O2 Del Method Room Air 06/11/23 07:22 O2 Flow Rate 6 06/10/23 14:00 Pain Score (VAS): 0/10 I/O: Intake & Output 06/10/23 06/11/23 06/11/23 23:59 07:59 15:59 Intake Total 272 800 120 Output Total 600 Balance 272 200 120 Laboratory Tests 06/11/23 05:14 06/11/23 05:14 06/11/23 05:14 WBC 13.1 H RBC 3.67 L Hgb 11.2 L D Hct 33.5 L MCV 91.3 MCH 30.5 MCHC 33.4 RDW 13.4 Plt Count 204 MPV 12.3 H Immature Gran % (Auto) 0.5 Neut % (Auto) 81.2 H Lymph % (Auto) 11.9 L Kingfisher % (Auto) 6.1 Eos % (Auto) 0.1 Baso % (Auto) 0.2 Lymph # (Auto) 1.56 Kingfisher # (Auto) 0.8 H Eos # (Auto) 0.0 Baso # (Auto) 0.0 Abs Immat Gran (auto) 0.06 H Absolute Neuts (auto) 10.6 H Absolute Nucleated RBC 0.0 Nucleated RBC % 0.0 Sodium 138 Potassium 4.1 Chloride 105 Carbon Dioxide 24 Anion Gap 9 BUN 16 Creatinine 0.60 L Estim Creat Clear Calc 116 Estimated GFR > 60 Glucose 92 Calcium 9.1 Post-procedural complaints: none Patient Feedback: Patient satisfied with anesthetic care.
--- NOTE | 2023-06-11 13:15 | PM.DS ---
DS: Summary Time Spent with Patient Time attestation: Total time spent providing and/or coordinating discharge services: DS: Data Data Completed and Pending Labs on day of discharge: Labs from last 24 hours 06/11/23 05:14 WBC 13.1 H RBC 3.67 L Hgb 11.2 L D Hct 33.5 L MCV 91.3 MCH 30.5 MCHC 33.4 RDW 13.4 Plt Count 204 MPV 12.3 H Immature Gran % (Auto) 0.5 Neut % (Auto) 81.2 H Lymph % (Auto) 11.9 L Donley % (Auto) 6.1 Eos % (Auto) 0.1 Baso % (Auto) 0.2 Lymph # (Auto) 1.56 Donley # (Auto) 0.8 H Eos # (Auto) 0.0 Baso # (Auto) 0.0 Abs Immat Gran (auto) 0.06 H Absolute Neuts (auto) 10.6 H Absolute Nucleated RBC 0.0 Nucleated RBC % 0.0 Sodium 138 Potassium 4.1 Chloride 105 Carbon Dioxide 24 Anion Gap 9 BUN 16 Creatinine 0.60 L Estim Creat Clear Calc 116 Estimated GFR > 60 Glucose 92 Calcium 9.1 Discharge Plan Discharge Patient Disposition: Home Health Service Discharge Instructions: Post Op Total Knee Replacement Instructions Dr. Popeye Collins [phone] Your dressing will be changed prior to your discharge. You will be sent home with one additional dressing to be changed on post op day 7 by the home health RN. Your federico will be removed on the 14th day after surgery and steri-strips will be placed. Please practice good hand hygiene and do not touch your incision in order to prevent infection. You may shower with your dressing but do not submerge in a bath tub. Do not drive or operate machinery until you are released by Dr. Collins. Do not walk without a walker for any reason until you are released by Dr. Collins. Continue to use your ice machine. Please use a towel or pillow case to protect your skin before applying your ice machine. Do NOT place a pillow under your knee. You may use a pillow from the calf down if needed. This will prevent a flexion contracture postoperatively. You may begin use of your CPM machine at home if you have been given one pre-operatively. DO NOT USE WHILE YOU ARE SLEEPING. Your first post op appointment was sent to you via mail preoperatively. If you have any questions or are unable to make your appointment, please contact our office for scheduling questions. Your medications have been sent to your pharmacy. You have been sent home with pain medication. Please olive picker an over the counter stool softener to prevent constipation due to narcotic use. Please keep this in mind during your postoperative recovery. If you are not experiencing regular bowel movements, please contact our office for further instruction. Please contact our office with any questions/concerns regarding your knee at [phone]. Per Care Coordination, pt. will discharge home with [facility] . [facility] will contact pt. at time of D/C to schedule first appointment. Patient Instructions: Antibiotic Form Stand Alone Forms: General Discharge Information Follow-up/Referrals: Popeye Collins MD [Physician] - Keep Reg. Scheduled Appt. Discharge Medications: New aspirin 325 mg Tablet,Delayed Release (Dr/Ec) 325 mg PO Q12HR 28 Days Qty: 56 0RF oxycodone-acetaminophen 5-325 mg Tablet 1 - 2 tablet PO Q6H PRN (Reason: pain) Qty: 56 0RF Continued duloxetine 20 mg capsule,delayed release(DR/EC) 20 mg PO BID Qty: 90 1RF cholecalciferol (vitamin D3) 25 mcg (1,000 unit) capsule 25 mcg PO HS budesonide-formoterol [Symbicort] 160-4.5 mcg/actuation HFA aerosol inhaler 2 puff inhalation Q12H cyanocobalamin (vitamin B-12) 1,000 mcg Tablet 1,000 mcg PO DAILY hydrocortisone [Preparation H Hydrocortisone] 1 % cream 1 applic topical TID PRN (Reason: hemorrhoids) Qty: 28.35 0RF albuterol sulfate [ProAir HFA] 90 mcg/actuation HFA aerosol inhaler 1 - 2 puff INHALATION Q4H PRN (Reason: shortness of breath) Qty: 8 2RF Ozempic 0.25 mg or 0.5 mg (2 mg/3 mL) pen injector 0.25 mg subcut WEEKLY Q
[2023-06-11 14:05] VITALS: BP 124/76; PULSE 62; RESP 20; TEMP 36.5; O2SAT 98
[2023-06-11 18:00] VITALS: BP 126/70; PULSE 63; RESP 19; TEMP 36.5; O2SAT 98
[2023-06-11] MEDS: CHOLECALCIFEROL 1,000 UNITS TABLET 1000 UNITS PO (20:22)
[2023-06-11 20:56] VITALS: BP 101/58; PULSE 78; RESP 16; TEMP 36.6; O2SAT 99
[2023-06-12 06:00] VITALS: BP 105/60; PULSE 81; RESP 16; TEMP 36.7; O2SAT 99
[2023-06-12] MEDS: oxyCODONE/ACETAMINOPHEN (*CRX) 5-325 MG TABLET 2 TABLET PO (06:17)
--- NOTE | 2023-06-12 08:38 | PM.PNORT ---
Progress Note: A&P Assessment and Plan (1) S/P total knee arthroplasty: Qualifiers: Laterality: right Qualified Code(s): Z96.651 - Presence of right artificial knee joint Code(s): Z96.659 - Presence of unspecified artificial knee joint Status: Acute Assessment and Plan: POD #2: Right TKA Continue PT/OT. WBAT. Walker. HIGH FALL RISK. Continue pain control. Ice Knee. Protect skin. DVT prophylaxis with Aspirin. SCDs. Incentive Spirometry Use reviewed. Monitor Dressing. Change prior to discharge. Bowel Regimen. Dispo: Home with Home Health pending progress with PT/OT likely today Plan Reviewed postoperative vitals, labs, radiographs, medications and physical exam with attending MD, Dr. Collins who agrees with current plan as indicated above. No furhter recommendations at this time. Subjective Subjective Date/Time Seen: 06/12/23 08:38 Post Op day: 2 Principal diagnosis: Right TKA Interval history: POD #2: Right TKA Patient doing well. Sitting up in chair. Slow progress with PT/OT yesterday on stairs. Hopeful for discharge home today pending progress with PT/OT. Review of Systems Review of Systems: All systems reviewed & are unremarkable except as noted in HPI and below Constitutional: Constitutional: Denies fever(s) and Denies headache(s) ENT: Denies headache(s) Cardiovascular: Cardiovascular: Denies chest pain, Denies diaphoresis, Denies palpitations and Denies dyspnea Respiratory: Respiratory: Denies dyspnea Gastrointestinal: Gastrointestinal: Denies abdominal pain, Denies constipation, Denies nausea and Denies vomiting Genitourinary: Genitourinary: Reports nocturia and Denies dysuria Musculoskeletal: Musculoskeletal: Reports arthralgias (Right Knee ) and Reports joint swelling (Right Knee ) Neurologic: Denies headache(s) Endocrine: Endocrine: Denies palpitations Exam Const: General: comfortable and no acute distress Resp: Effort & Inspection: normal respiratory effort Cardio: Rate: regular rate Rhythm: regular rhythm GI: GI Palp: Yes Soft to palpation, No Tenderness to palpation present (GI) and No Guarding due to palpation present (GI) Skin: General skin exam: wounds noted Wounds: wounds noted Other: Incision c/d/i. No surrounding redness/warmth. No hematoma. Mild ecchymosis. No wound dehiscence Neuro: Cognition (Neuro): normal cognition Other: NV intact. Moves toes. Sensation intact to light touch. +ankle dorsiflexion/plantarflexion. Extrem: Right lower extremity: normal to inspection, knee Details: tenderness (diffuse, mild ) Location: of the patella, swelling (diffuse, consistent with surgical intervention ), abnormal ROM Details: pain with active ROM during, pain with passive ROM during and with range as follows (limited due to recent surgical intervention ); able to extend lower leg actively and ecchymosis (mild ), lower leg (Negative Toyin's Sign ) Details: normal to inspection; no erythema and no tenderness, ankle (+ankle dorsiflexion/plantarflexion ) Details: normal to inspection, no edema and normal ROM; no tenderness, no swelling and no ecchymosis and foot Details: normal capillary refill, normal to inspection, vascular exam Details: dorsalis pedis pulse present and motor-sensory exam Details: light-touch normal; no tenderness Left lower extremity: normal to inspection Psych: Mental Status: mental status grossly normal Objective Data Vital Signs Vital Signs: Vital Signs - 24 hr 06/11/23 10:00 06/11/23 14:05 06/11/23 18:00 Temperature 36.4 C 36.5 C 36.5 C Pulse Rate 62 62 63 Respiratory Rate 19 20 19 Blood Pressure 120/66 124/76 126/70 Pulse Oximetry 99 98 98 06/11/23 20:56 06/12/23 06:00 Temperature 36.6 C 36.7 C Pulse Rate 78 81 Respiratory Rate 16 16 Blood Pressure 101/58 L 105/60 Pulse Oximetry 99 99 Intake/Output Intake/Output: Intake & Output 06/09/23 06/10/23 06/11/23 06/12/23 23:59 23:59 23:59 23:5
[2023-06-12] MEDS: SENNA/DOCUSATE SODIUM TABLET 2 TAB PO (08:42)
[2023-06-12] MEDS: ASPIRIN 325 MG ENTERIC TABLET PO (08:42)
[2023-06-12] MEDS: polyethylene glycoL 3350 17 GM POWD.PACK PO (08:43)
[2023-06-12] MEDS: DULoxetine HCL 20 MG CAPSULE.DR PO (08:43)
[2023-06-12] MEDS: FAMOTIDINE 20 MG TABLET PO (08:43)
--- NOTE | 2023-06-12 09:20 | PM.DS ---
DS: Admitting Diagnosis Discharge Date 06/12/2023 Admitting Diagnosis Right Knee DJD DS: Discharge Diagnosis Discharge Diagnosis (1) S/P total knee arthroplasty: Qualifiers: Laterality: right Qualified Code(s): Z96.651 - Presence of right artificial knee joint Code(s): Z96.659 - Presence of unspecified artificial knee joint Status: Acute Assessment and Plan: POD #2: Right TKA Continue PT/OT. WBAT. Walker. HIGH FALL RISK. Continue pain control. Ice Knee. Protect skin. DVT prophylaxis with Aspirin. SCDs. Incentive Spirometry Use reviewed. Monitor Dressing. Change prior to discharge. Bowel Regimen. Dispo: Home with Home Health pending progress with PT/OT likely today Plan Reviewed postoperative vitals, labs, radiographs, medications and physical exam with attending MD, Dr. Collins who agrees with current plan as indicated above. No furhter recommendations at this time. DS: Summary Hospital Course Reason for hospitalization: Right TKA Hospital Course: 53 year old female admitted s/p Right TKA for postoperative medical management, pain control and mobilization with PT/OT. Patient progressed well with PT/OT. Pain and vitals remained stable throughout. The patient has been cleared to be discharged home with home health at this time. All discharge care instructions reviewed at depth. New medications reviewed. Follow up planned for 3 weeks in the outpatient orthopedic clinic with Dr. Collins. Dr. Collins agrees with d/c plans. Status at Discharge Functional status at discharge: uses cane/walker Overall status at discharge: patient is progressing back to baseline Time Spent with Patient Time attestation: Total time spent providing and/or coordinating discharge services: Exam Const: General: comfortable and no acute distress Resp: Effort & Inspection: normal respiratory effort Cardio: Rate: regular rate Rhythm: regular rhythm Skin: General skin exam: wounds noted Wounds: wounds noted Other: Incision c/d/i. No surrounding redness/warmth. No hematoma. Mild ecchymosis. No wound dehiscence Neuro: Cognition (Neuro): normal cognition Other: NV intact. Moves toes. Sensation intact to light touch. +ankle dorsiflexion/plantarflexion. Extrem: Right lower extremity: normal to inspection, knee Details: tenderness (diffuse, mild ) Location: of the patella, swelling (diffuse, consistent with surgical intervention ), abnormal ROM Details: pain with active ROM during, pain with passive ROM during and with range as follows (limited due to recent surgical intervention ); able to extend lower leg actively and ecchymosis (mild ), lower leg (Negative Toyin's Sign ) Details: normal to inspection; no erythema and no tenderness, ankle (+ankle dorsiflexion/plantarflexion ) Details: normal to inspection, no edema and normal ROM; no tenderness, no swelling and no ecchymosis and foot Details: normal capillary refill, normal to inspection, vascular exam Details: dorsalis pedis pulse present and motor-sensory exam Details: light-touch normal; no tenderness Left lower extremity: normal to inspection Psych: Mental Status: mental status grossly normal Discharge Plan Discharge Attending physician on discharge: Popeye Collins Discharging Clinician: Katie Woody Anticipated Discharge Date/Time: 06/12/23 15:30 Patient Disposition: Home Health Service Activity: may shower, no driving and follow weight bearing status Diet: as tolerated Wound Care Instructions: follow printed instructions Discharge Instructions: Post Op Total Knee Replacement Instructions Dr. Popeye Collins [phone] Your dressing will be changed prior to your discharge. You will be sent home with one additional dressing to be changed on post op day 7 by the home health RN. Your federico will be removed on the 14th day after surgery and steri-strips will be placed. Please practice good hand hygiene and do not touch
[2023-06-12 09:41] VITALS: O2SAT 98
[2023-06-12] MEDS: oxyCODONE/ACETAMINOPHEN (*CRX) 5-325 MG TABLET 1 TABLET PO (11:07)
== END 2023-06-12 15:31 | disposition home health service (06) ==
LOC: ANHSURGERY 16:50 → ANH2MED 16:50
PROVIDERS: Admitting Provider Orthopaedic Surgery; PCP Nurse Practitioner Family; Visit Provider Orthopaedic Surgery
PROC: (CPT 27447; principal; 2023-06-10 11:00)
DX: M17.11 Unilateral primary osteoarthritis, right knee (principal); G89.18 Other acute postprocedural pain; J45.909 Unspecified asthma, uncomplicated; F32.A Depression, unspecified; E78.5 Hyperlipidemia, unspecified
CPT/HCPCS: 27447; 64447; 36415; 73560; 80048; 80307; 83036; 85025; 85610; 85730; 86850; 86900; 86901; 87081; 97110; 97116; 97161; 97165; 97530; 97535; A9270; C1713; C1776; G0378; J0171; J0690; J1100; J1170; J1885; J2250; J2270; J2405; J2704; J2795; J3010; J3370; J7030; J7120

== ENCOUNTER 2023-08-05 12:30 | Outpatient (RCR) | payer OTHER, SELFPAY ==
--- NOTE | 2023-07-08 14:25 | OPREHPOC ---
Outpatient Therapy Plan of Care This is a Multidisciplinary Plan of Care that may contain components documented by all disciplines (PT, OT, and ST.) PT Problem 1 PT Problem #1 Knowledge Deficit PT Goal 1 Goal Pt to be IND with issued HEP Target Visit 8 PT Problem 2 PT Problem #2 Pain PT Goal 1 Goal Pt to report no pain greater than 3/10 in the last week. PT Goal 2 Goal Pt to reports 75% improvement in overall symptoms. Target Visit 8 PT Problem 3 PT Problem #3 Impaired Range of Motion PT Goal 1 Goal Pt to improve active knee motion from 0-120 deg. Target Visit 8 PT Problem 4 PT Problem #4 Impaired Gait PT Goal 1 Goal Pt to return to ambulation without an AD on level surfaces. Target Visit 8 PT Goal 2 Goal Pt to improve 2 min walk 286ft to 350ft. Target Visit 8 PT Problem 5 PT Problem #5 Impaired Strength PT Goal 1 Goal Pt to improve 5xSTS from 21s to 15s. Target Visit 8 PT Goal 2 Goal Pt to improve RLE strength to grossly 5/5 Target Visit 8
--- NOTE | 2023-07-08 14:25 | PTOPEVAL1 ---
Assessment and note entered by Graciela Bunn, PT, DPT Evaluation Information Assessment Status Evaluation Diagnosis R TKA Onset 06/10/23 Subjective Information Pt states she had a R TKA on 06/10/23, since then she has been completing home health PT and was discharged 3 days ago. Currently she states she is doing pretty good, she has been able to get dressed on her own, drive, and go for short walks on her own. She is currently walking with a cane and did not use a device before the surgery. 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 Reported Pain Level Pain Score 5: Self Report Assessment PT Clinical Summary Tawana presents to therapy today for her initial evaluation following a R TKA on 06/10/23. Today she demonstrates good knee ROM with only minor limitations. She currently ambulates with a cane, has gait deviations, and ambulates at a decreased gait speed. Skilled therapy services are indicated to improve gait and stair navigation, functional strength, ROM, and to return to PLOF. LEFS: 60/80 Plan of Care Interventions Electrical Stimulation,Gait Training,Hot Pack/Cold Pack,Manual Therapy,Neuro Re-education,Patient/ Caregiver Educati,Therapeutic Activities, Therapeutic Exercise PT Services Indicated Yes Treatment Frequency and 2x/wk for 8 visits Duration These treatments will address the objective and functional deficits as defined above. The patient will be advanced safely and appropriately in order for the patient to progress towards his/her prior level of function. Additional exercises will be introduced and as well as a comprehensive home exercise program upon discharge, if needed, ?to ensure carryover of functional gains achieved in the clinic. This treatment plan has been reviewed and agreement upon by the patient.
--- NOTE | 2023-08-05 13:14 | PTOPDC ---
Assessment and note entered by Graciela Bunn, PT, DPT Evaluation Information Assessment Status Discharge Diagnosis R TKA Onset 06/10/23 Subjective Information Pt states she is doing really well. She reports she can walk and navigate stairs like she she never had surgery . Pt reports 100% return to PLOF . Reported Pain Level Pain Score 0: Self Report Pain Score 0: Self Report Assessment PT Clinical Summary Tawana presents to therapy today for her progress report following 9 visits of skilled a R TKA on 06/10/23. Today she demonstrates active knee ROM form 0-125 deg. She reports no functional limitations at this time and has met or progressed well towards her therapy goals. She no longer requires skilled services and will be discharged at this time. LEFS: 79/80 Plan of Care PT Services Indicated No
== END 2023-08-05 14:46 | disposition home or self-care (01) ==
LOC: ANHGOSHPT 12:30
PROVIDERS: PCP Nurse Practitioner Family; Visit Provider Orthopaedic Surgery
DX: Z47.1 Aftercare following joint replacement surgery (principal); Z96.651 Presence of right artificial knee joint
CPT/HCPCS: 97110; 97140; 97161; 97530

== ENCOUNTER 2023-09-16 14:37 | Outpatient (CLI) | payer OTHER, SELFPAY ==
[2023-09-16 18:42] LABS: Basophils Absolute Auto 0.1 K/mm3 (0.0-0.1); Basophils Percent Auto 0.8 % (0.2-1.2); Eosinophils Absolute Auto 0.2 K/mm3 (0-0.3); Eosinophils Percent Auto 2.7 % (0-4.4); Hematocrit 41.8 % (37.0-47.0); Hemoglobin 13.8 g/dL (12.0-15.0); Immature Granulocyte Absolute 0.01 K/mm3 (0.00-0.031); Immature Granulocyte Percent A 0.2 % (0-0.5); Lymphocytes Absolute Auto 2.04 K/mm3 (0.9-3.2); Lymphocytes Percent Auto 32.2 % (18.3-44.2); Mean Corpuscular Hemoglobin 28.5 pg (26-34); Mean Corpuscular Volume 86.2 fl (80-100); Mean Platelet Volume 11.5 fl (7.4-10.4); Monocytes Absolute Auto 0.4 K/mm3 (0.1-0.6); Monocytes Percent Auto 6.8 % (2.6-8.5); Neutrophils Absolute Auto 3.6 K/mm3 (1.3-6.7); Neutrophils Percent Auto 57.3 % (45.5-73.1); Platelet Count Result 281 k/mm3 (150-375); Red Blood Count 4.85 M/mm3 (4.2-5.4); Red Cell Distribution Width 13.6 % (11.5-14.5); White Blood Count 6.3 K/mm3 (4.5-10.0)
[2023-09-16 19:10] LABS: Alanine Aminotransferase 17 U/L (6-35); Albumin Level 4.3 g/dL (3.5-5.1); Alkaline Phosphatase 60 U/L (38-126); Anion Gap 5 mmol/L (8-16); Aspartate Amino Transferase 36 U/L (14-36); Bilirubin,Total 0.6 mg/dL (0.2-1.3); Blood Urea Nitrogen 19 mg/dL (7-17); Calcium 9.5 mg/dL (8.4-10.2); Carbon Dioxide 31 mmol/L (22-30); Chloride 103 mmol/L (98-107); Estimated Glomerular Filt Rate > 60; Glucose 68 mg/dL (65-110); Potassium 4.2 mmol/L (3.4-5.0); Sodium 139 mmol/L (137-145)
== END 2023-09-16 14:38 | disposition home or self-care (01) ==
LOC: ANHGOSHLAB 14:38
PROVIDERS: PCP Nurse Practitioner Family; Visit Provider Nurse Practitioner Family
DX: R42 Dizziness and giddiness (principal); D69.6 Thrombocytopenia, unspecified
CPT/HCPCS: 36415; 80053; 85025

== ENCOUNTER 2023-11-12 07:36 | Outpatient (CLI) | payer OTHER, SELFPAY | END 2023-11-12 07:37 | disposition home or self-care (01) | LOC: ANHAUDASC 07:38 | PROVIDERS: PCP Family Medicine; Visit Provider Otolaryngology | DX: H92.01 Otalgia, right ear (principal); H90.71 Mixed conductive and sensorineural hearing loss, unilateral, right ear, with unrestricted hearing on the contralateral side; H90.3 Sensorineural hearing loss, bilateral | CPT/HCPCS: 92557; 92567 ==

== ENCOUNTER 2023-12-25 07:50 | Outpatient (CLI) | payer OTHER, SELFPAY ==
--- NOTE | ~2023-12-25 | CT_ITS ---
EXAMINATION: CT IAC/mastoids BI wo con DATE: 12/25/2023 08:22 INDICATION: Migraine headache, unspecified, not intractable. TECHNIQUE: Computed tomography (CT) of the temporal bones was performed without intravenous contrast. Automated exposure control and iterative reconstruction technique were employed. The dose-length pro duct was 464.67 mGy-cm. COMPARISON: Head CT 10/09/2021 FINDINGS: Partially visualizes dental disease including carious lesions at 2 maxillary molars and per iapical lucencies at a right maxillary premolar. RIGHT TEMPORAL BONE: The internal auditory canal, cochlea, vestibule, semicircular canals, vestibular aqueduct, carotid ca nal, jugular bulb, facial nerve course, Prussak space, sputum, tympanic membrane, mastoid air cells, and external auditory canal are normal. LEFT TEMPORAL BONE: The internal auditory canal, cochlea, vestibule, semicircular canals, vestibular aqueduct, carotid ca nal, jugular bulb, facial nerve course, ossicles, Prussak space, scutum, tympanic membrane, external auditory canal, and mastoid air cells are normal. IMPRESSION: 1. Normal temporal bones. 2. Dental disease. Reviewed, dictated and finalized at location A.
== END 2023-12-25 07:51 | disposition home or self-care (01) ==
PROVIDERS: PCP Nurse Practitioner Family; Visit Provider Otolaryngology
DX: G43.909 Migraine, unspecified, not intractable, without status migrainosus (principal); K08.9 Disorder of teeth and supporting structures, unspecified; M26.609 Unspecified temporomandibular joint disorder, unspecified side; H92.01 Otalgia, right ear; Z86.69 Personal history of other diseases of the nervous system and sense organs
CPT/HCPCS: 70480

== ENCOUNTER 2024-02-15 09:14 | Outpatient (CLI) | payer OTHER, SELFPAY ==
[2024-02-15 09:35] LABS: Basophils Absolute Auto 0.1 K/mm3 (0.0-0.1); Basophils Percent Auto 0.9 % (0.2-1.2); Eosinophils Absolute Auto 0.1 K/mm3 (0-0.3); Eosinophils Percent Auto 2.1 % (0-4.4); Hematocrit 40.8 % (37.0-47.0); Hemoglobin 14.2 g/dL (12.0-15.0); Immature Granulocyte Absolute 0.01 K/mm3 (0.00-0.031); Immature Granulocyte Percent A 0.2 % (0-0.5); Lymphocytes Absolute Auto 1.93 K/mm3 (0.9-3.2); Mean Corpuscular HGB Conc 34.8 g/dl (32-36); Mean Corpuscular Hemoglobin 31.1 pg (26-34); Mean Corpuscular Volume 89.5 fl (80-100); Mean Platelet Volume 10.9 fl (7.4-10.4); Monocytes Absolute Auto 0.3 K/mm3 (0.1-0.6); Monocytes Percent Auto 6.3 % (2.6-8.5); Neutrophils Absolute Auto 2.9 K/mm3 (1.3-6.7); Neutrophils Percent Auto 54.5 % (45.5-73.1); Platelet Count Result 255 k/mm3 (150-375); Red Blood Count 4.56 M/mm3 (4.2-5.4); Red Cell Distribution Width 12.4 % (11.5-14.5); White Blood Count 5.4 K/mm3 (4.5-10.0)
[2024-02-15 09:42] LABS: Blood Urea Nitrogen 12 mg/dL (8-26); Carbon Dioxide 28 mmol/L (22-30); Chloride 101 mmol/L (98-109); Estimated Glomerular Filt Rate > 60; Glucose 81 mg/dL (70-105); Ionized Calcium (POC) 1.23 mmol/L (1.11-1.31); Potassium 4.1 mmol/L (3.5-4.9); Sodium 140 mmol/L (138-146)
[2024-02-15 11:45] LABS: Alanine Aminotransferase 13 U/L (6-35); Albumin Level 4.6 g/dL (3.5-5.1); Alkaline Phosphatase 53 U/L (38-126); Anion Gap 9 mmol/L (4-12); Aspartate Amino Transferase 23 U/L (14-36); Bilirubin,Total 0.9 mg/dL (0.2-1.3); Blood Urea Nitrogen 13 mg/dL (7-17); Calcium 9.4 mg/dL (8.4-10.2); Carbon Dioxide 27 mmol/L (22-30); Chloride 103 mmol/L (98-107); Estimated Glomerular Filt Rate > 60; Glucose 77 mg/dL (65-110); Potassium 4.1 mmol/L (3.4-5.0); Sodium 139 mmol/L (137-145)
== END 2024-02-15 09:15 | disposition home or self-care (01) ==
LOC: ANHLAB 09:16
PROVIDERS: PCP Nurse Practitioner Family; Visit Provider Internal Medicine Hematology & Oncology
DX: D69.3 Immune thrombocytopenic purpura (principal)
CPT/HCPCS: 36415; 80047; 80053; 85025

== ENCOUNTER 2024-06-30 10:35 | Outpatient (CLI) | payer OTHER, SELFPAY ==
--- NOTE | ~2024-06-30 | MM_ITS ---
EXAMINATION: MM screening akhil BI w suzanne HISTORY: Screening mammogram TECHNIQUE: Craniocaudal and mediolateral oblique 3-D tomosynthesis images were obtained and synthetic 2-D images were generated. CAD analysis was submitted and interpreted. COMPARISON: 05/05/2023, 02/12/2022 BREAST PARENCHYMAL COMPOSITION:Not Dense. There are scattered areas of fibroglandular density. FINDINGS: No suspicious mass, calcification, or architectural distortion are identified in either octavia ast to suggest malignancy. There has been no suspicious interval change. IMPRESSION: No mammographic evidence of malignancy. Recommend routine screening mammography in one year. BI-RADS Category 1: Negative Reviewed, dictated and finalized at location .
== END 2024-06-30 10:36 | disposition home or self-care (01) ==
PROVIDERS: PCP Internal Medicine; Visit Provider Internal Medicine
DX: Z12.31 Encounter for screening mammogram for malignant neoplasm of breast (principal)
CPT/HCPCS: 77063; 77067

== ENCOUNTER 2024-11-23 07:50 | Outpatient (CLI) | payer OTHER, SELFPAY ==
--- NOTE | ~2024-11-23 | MMUS_ITS ---
EXAMINATION: MM diagnostic akhil LT w suzanne, US breast LT limited HISTORY: Left lateral breast pain TECHNIQUE: Additional 3-D tomosynthesis images of the left breast were performed and synthetic 2-D im ages were generated. CAD analysis was submitted and interpreted. High resolution limited left breast ultrasound was performed. COMPARISON: 06/30/2024 and dating back to 07/11/2020 BREAST PARENCHYMAL COMPOSITION:Not Dense. There are scattered areas of fibroglandular density. FINDINGS: MAMMOGRAPHIC FINDINGS: Punctate calcifications detected bilaterally, vascular in origin and benign in appearance. Mammography demonstrates an otherwise stable parenchymal pattern without suspicious microcalcificatio ns, architectural distortion, discrete masses or significant asymmetry, specifically within the area of clinical concern. ULTRASOUND: Sonographic evaluation of the 2:00 position of the left breast approximately 15 cm from the nipple de monstrates benign fibroglandular elements without a cystic or solid lesion of concern. IMPRESSION: No mammographic/tomographic or sonographic evidence to suggest the presence of malignancy. Further evaluation at this time should be based on clinical assessment. Continued follow-up physical examination is recommended. Resumption of yearly mammography is recommended. BI-RADS Category 2: Benign finding(s). Reviewed, dictated and finalized at location A. IMPRESSION: No mammographic/tomographic or sonographic evidence to suggest the presence of malignancy. Further evaluation at this time should be based on clinical assessment. Continu ed follow-up physical examination is recommended. Resumption of yearly mammography is recommended. BI-RADS Category 2: Benign finding(s).
== END 2024-11-23 07:51 | disposition home or self-care (01) ==
PROVIDERS: PCP Nurse Practitioner; Visit Provider Nurse Practitioner
DX: N64.4 Mastodynia (principal)
CPT/HCPCS: 76642; 77061; 77065; G0279

== ENCOUNTER 2025-08-15 10:05 | Outpatient (CLI) | payer OTHER, SELFPAY ==
--- NOTE | 2025-08-15 10:40 | NEURO_ITS ---
Impression: # Complains of right-hand pain. ? # No Carpal Tunnel Syndrome. ? # No Ulnar Neuropathy. ? # Normal Needle/ EMG exam. ? # Clinical correlation recommended. Nerve Conduction Studies ?Stim Site NR Peak (ms) P-T Amp (?V) Site1 Site2 Delta-P (ms) Dist (cm) Naresh (m/s) Right Median Anti Sensory (2-3nd Digit) Wrist ? 3.0 58.4 Wrist 2-3nd Digit 3.0 14.0 47 Wrist ? 3.0 47.1 Wrist 2-3nd Digit 3.0 14.0 47 Right Radial Anti Sensory (Base 1st Digit) Wrist ? 2.2 22.4 Wrist Base 1st Digit 2.2 0.0 Right Ulnar Anti Sensory (5th Digit) Wrist ? 2.8 32.5 Wrist 5th Digit 2.8 14.0 50 ?Stim Site NR Onset (ms) O-P Amp (mV) Site1 Site2 Delta-0 (ms) Dist (cm) Naresh (m/s) Right Median Motor (Abd Poll Brev) Wrist ? 3.1 8.5 Elbow Wrist 4.7 29.0 62 Elbow ? 7.8 7.0 Right Ulnar Motor (Abd Dig Minimi) Wrist ? 3.0 11.2 A Elbow Wrist 5.0 30.0 60 A Elbow ? 8.0 9.3 B Elbow Wrist 3.5 21.0 60 B Elbow ? 6.5 2.1 F Wave Studies ?NR F-Lat (ms) L-R F-Lat (ms) Right Median (Mrkrs) (Abd Poll Brev) ? 25.26 Right Ulnar (Mrkrs) (Abd Dig Min) ? 26.72 Electromyography ?Side Muscle Nerve Root Ins Act Fibs Amp Dur Recrt Comment Right 1stDorInt Ulnar C8-T1 Nml Nml Nml Nml Nml Right Ext Indicis Radial (Post Int) C7-8 Nml Nml Nml Nml Nml Right Ext Digitorum Radial (Post Int) C7-8 Nml Nml Nml Nml Nml Right BrachioRad Radial C5-6 Nml Nml Nml Nml Nml Right PronatorTeres Median C6-7 Nml Nml Nml Nml Nml Right Abd Poll Brev Median C8-T1 Nml Nml Nml Nml Nml Right ABD Dig Min Ulnar C8-T1 Nml Nml Nml Nml Nml Right FlexPolLong Median (Ant Int) C7-8 Nml Nml Nml Nml Nml Right Abd Poll Long Radial (Post Int) C7-8 Nml Nml Nml Nml Nml
--- OUTSIDE RECORDS SUMMARY | 2025-08-15 11:50 | XMS_ITS | Clinical Summary ---
Author Organization External [facility] Care Team Providers Care Supervisor Customer Records Division Name Role Phone Mare Franco MD Primary Care Provider [phone] Karina FrazierM Unavailable [phone] Rula Marie NP Unavailable [phone] Allergies Active Allergy Reactions Criticality Noted Date Comments Dimetapp Cold And Flu Rash Medium 09/15/2024 Pseudoephedrine Rash Medium 09/23/2024 Anything with sudafed Medications celecoxib (CeleBREX) 200 mg capsule Take 1 capsule (200 mg total) by mouth daily Active DULoxetine DR (CYMBALTA) 20 mg capsule Take 1 capsule (20 mg total) by mouth 2 (two) times a day Active topiramate (TOPAMAX) 25 mg tablet Take 1 tablet (25 mg total) by mouth 2 (two) times a day Active ondansetron (ZOFRAN) 8 mg tablet Take 1 tablet (8 mg total) by mouth every 8 (eight) hours as needed for nausea or vomiting Active tirzepatide (MOUNJARO) 7.5 mg/0.5 mL pen injector Inject 7.5 mg under the skin every 7 days Take on Saturdays Active cholecalciferol (VITAMIN D-3) 5,000 unit tablet Take 1 tablet (5,000 Units total) by mouth nightly Active zinc gluconate 50 mg tablet Take 1 tablet (50 mg total) by mouth nightly Active lysine 1,000 mg tablet Take 1 tablet by mouth nightly Active HAIR, SKIN AND NAILS, BIOTIN, ORAL Take 300 mg by mouth nightly Active milk thistle 150 mg capsule Take 150 mg by mouth nightly Active budesonide-form oteroL (SYMBICORT) 160-4.5 mcg/actuation inhaler Inhale 2 puffs 2 (two) times a day Rinse mouth with water after use. Do not swallow. 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 Never 09/15/2024 Q2: How many drinks containi ng alcohol do you have on a typical day when you are drinking? Patient does not drink Q3: How often do you have si x or more drinks on one occasion? Never 09/15/2024 Personal Safety Answer Date Recorded Have you ever been in or are you currently in a harmful physical or emotional relationship or is someone making you feel afraid or unsafe? Denies 09/23/2024 Comments No Sex and Gender Information Value Date Recorded Sex Assigned at Not on file Legal Sex Female 9:22 AM AC[employer] CHANGER Gender Identity Not on file Sexual Orientation Not on file Last Filed Vital Signs Vital Sign Reading Time Taken Comments Blood Pressure 109/73 09/23/2024 1:50 PM ACID CHANGER Pulse 64 09/23/2024 1:50 PM ACID CHANGER Temperature 36.1 C (97 F) 09/23/2024 1:50 PM ACID CHANGER Respiratory Rate 20 09/23/2024 1:50 PM ACID CHANGER Oxygen Saturation 100% 09/23/2024 1:50 PM ACID CHANGER Inhaled Oxygen Concentration - - Weight 74.7 kg (164 lb 10.9 oz) 025 10:25 AM ACID CHANGER Height 170.2 cm (5' 7) 09/23/2024 10:2 5 AM ACID CHANGER Body Mass Index 25.79 09/23/2024 10:25 AM ACID CHANGER Plan of Treatment Health Maintenance Due Date Last Done Comments Breast Cancer Screening-Mammogram 1972 Colon Cancer Screening-Colonoscopy 1972 Depression Screening 1972 Hepatitis C Screening 1972 Hepatitis B Screening 02/03/1990 Regular Well Visit/Exam 18-64 02/03/1990 Zoster Vaccine (1 of 2) 02/03/2022 Influenza Vaccine (#1) 2025 07/06/2024 DTaP/Tdap/Td Vaccine (2 - Td or Tdap) 05/04/203411/2023 Pneumococcal vaccine <65 Completed 05/04/2024 Insurance [employer] Advance Directives For more information, please contact: [phone] * Full Code (Latest Code Status on File) Date Activated Date Inactivated Comments 09/23/2024 1:27 PM 09/23/2024 6:00 PM Care Teams Supervisor Customer Records Division Relationship Specialty Start Date End Date Mare Franco MD [address] [place] [address] PCP - General Internal Medicine 09/23/24 Karina Frazier DPM [address] [facility] [address] [facility] [place] [address] Consulting Physician Foot and Ankle Surg 09/23/24 Rula Marie, [employer] [address] [facility] [address] [place] [address] Nurse Practitioner Internal Medicine 12/06/24
--- OUTSIDE RECORDS SUMMARY | 2025-08-15 11:50 | XMS_ITS | Clinical Summary ---
Author Organization [facility] Chichi carlotta Packer Address [address] [place] [address] Care Team Providers Care Banking Pin Adjuster Name Role Phone Marcia Anthony MD Primary Care Provider Allergies Active Allergy Reactions Criticality Noted Date Comments Brompheniramine Other (See Comments) 10/21/2021 Dextromethorphan Other (See Comments) Diphenhydramine Other (See Comments) 10/21/2021 Guaifenesin Other (See Comments) 10/21/2021 Hydrocodone Other (See Comments) 10/21/2021 Phenylephrine Other (See Comments) 10/21/2021 Pseudoephedrine Other (See Comments) 10/21/2021 Medications buPROPion HCL (WELLBUTRIN SR) 150 mg Sustained Release 12 hour tablet Take by mouth. 07/18/2021 Active celecoxib (CeleBREX) 200 mg capsule Take by mouth. 07/18/2021 Active oxyCODONE-acetam inophen (Percocet) 7.5-325 mg Tablet Take by mouth. 07/18/2021 Active diazePAM (VALIUM) 5 mg tablet Take by mouth. 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 Gender Identity Not on file Sexual Orientation Not on file Last Filed Vital Signs Vital Sign Reading Time Taken Comments Blood Pressure 113/72 02/15/2024 9:40 AM CDT Pulse 84 02/15/2024 9:40 AM CDT Temperature 36.2 C (97.2 F) 02/15/2024 9:40 AM CDT Respiratory Rate 14 02/15/2024 9:40 AM CDT Oxygen Saturation 98% 02/15/2024 9:40 AM CDT Inhaled Oxygen Concentration - - Weight 88.9 kg (196 lb) 02/15/2024 9:40 AM CDT Height 170.2 cm (5' 7) 02/12/2022 3:45 PM CDT Body Mass Index 30.7 02/12/2022 3:45 PM CDT Plan of Treatment Health Maintenance Due Date Last Done Comments DTAP/TDAP/TD VACCINES (1 - Tdap) 02/03/1991 HEPATITIS B VACCINES (1 of 3 - 19+ 3-dose series) 01/1991 HPV/Cotest (21-29) 02/03/1993 CERVICAL CANCER SCREENING 02/03/2002 HPV/Cotest (30-65) 02/03/2002 PAP SMEAR 02/03/2002 BREAST CANCER SCREENING 2012 COLORECTAL SCREENING 02/03/2017 Colorectal Cancer Screening 02/03/2017 FIT-DNA Q 3 years 02/03/2017 FIT/FOBT Q 1 year 02/03/2017 Flex Sig/CT Colonography Q 5 years 02/03/2017 ZOSTER VACCINE (1 of 2) 02/03/2022 INFLUENZA VACCINE (#1) 2025 Insurance [facility] M[facility] Care Teams Banking Pin Adjuster Relationship Specialty Start Date End Date Marcia Anthony MD [address] [place] [address] PCP - General Family Practice 02/12/23
--- OUTSIDE RECORDS SUMMARY | 2025-08-15 11:50 | XMS_ITS | Clinical Summary ---
Author Organization [facility] Address [address] [place] [id number] Care Team Providers Care Arbor Press Operator Name Role Phone Rula Marie SENIOR IOS DEVELOPER Primary Care Provider [phone] Allergies Active Allergy Reactions Criticality Noted Date Comments Aspirin Other (see comment) 08/18/2024 Thrombocytopenia Montelukast Other (see comment) 11/30/2024 Thrombocytopenia Pseudoephedrine Rash Medium 09/23/2024 Anything with sudafed Medications Blood Glucose Monitoring Suppl (CONTOUR NEXT GEN MONITOR) w/Device Kit see administration instructions. 09/24/19 24 Active CONTOUR NEXT TEST test strip see administration instructions. 01/20/20 24 Active ipratropium (ATROVENT) 0.03 % nasal spray SPRAY 2 SPRAYS INTO EACH NOSTRIL 2 TIMES DAILY 04/02/20 24 Active Microlet Lancets Misc USE 1-3 TIMES A DAY 01/26/20 24 Active loperamide (IMODIUM) 2 MG capsule TAKE 1 CAPSULE BY MOUTH EVERY 6 HOURS NEEDED FOR LOOSE STOOL 12/07/19 24 Active mometasone (NASONEX) 50 MCG/ACT nasal spray ADMINISTER 2 SPRAYS INTO EACH NOSTRIL DAILY NEEDED FOR ALLERGY SYMPTOMS 03/08/20 24 Active neomycin-polymyxin -hydrocortisone (CORTISPORIN) 3.5-22193-1 otic suspension INSTILL 4 DROPS INTO THE EAR(S) EVERY 8 HOURS FOR 10 DAYS 09/30/19 24 Active promethazine (PHENERGAN) 25 MG tablet TAKE 1 TABLET BY MOUTH EVERY 6 HOURS NEEDED FOR VERTIGO 01/26/20 24 Active triamcinolone (KENALOG) 0.1 % creamIndications:D ermatitis Apply topically 2 (two) times daily as needed. For itching right wrist 15 g 1 08/18/20 24 Active SUMAtriptan (IMITREX) 100 MG tabletIndications: Migraine without aura and without status migrainosus, not intractable Take 1 tablet (100 mg total) by mouth daily as needed for Migraine. may take 1 tablet 2 hours later. Max of 2 tablets in 24-hour period. 8 tablet 2 12/01/19 25 Active nystatin (MYCOSTATIN) powderIndications: Candidal intertrigo Apply topically 3 (three) times daily as needed. 30 g 1 01/19/20 25 Active budesonide-formote rol (SYMBICORT) 160-4.5 MCG/ACT inhalerIndications :Moderate persistent asthma without complication (HHS/HCC) Inhale 2 puffs into the lungs 2 (two) times daily. 30.6 g 3 03/08/20 25 Active DULoxetine (CYMBALTA) 20 MG capsuleIndications :Generalized anxiety disorder Take 1 capsule (20 mg total) by mouth 2 (two) times daily. 180 capsule 1 03/08/20 25 Active metFORMIN ER (GLUCOPHAGE-XR) 500 MG 24 hr tabletIndications: Abnormal glucose Take 1 tablet (500 mg total) by mouth 2 (two) times daily. 180 tablet 1 03/08/20 25 Active topiramate (TOPAMAX) 25 MG tabletIndications: Migraine without aura and without status migrainosus, not intractable Take 1 tablet (25 mg total) by mouth 2 (two) times daily. 180 tablet 1 03/08/20 25 Active rosuvastatin (CRESTOR) 10 MG tabletIndications: Mixed hyperlipidemia Take 1 tablet (10 mg total) by mouth nightly at bedtime. 90 tablet 1 03/10/20 25 Active celecoxib (CELEBREX) 100 MG capsuleIndications :Coccyx pain Take 1-2 capsule by mouth 2 times daily as needed for pain. Do not combine with other NSAIDS (ibuprofen, aleve etc) 120 capsule 1 03/23/20 25 Active ondansetron (ZOFRAN-ODT) 8 MG disintegrating tabletIndications: Nausea DISSOLVE 1 TABLET BY MOUTH EVERY 8 HOURS NEEDED FOR NAUSEA 90 tablet 1 04/02/20 25 Active methylPREDNISolone , NAVID, (MEDROL DOSEPAK) 4 MG tabletIndications: Right wrist pain TAKE 6 TABLETS ON DAY 1 DIRECTED ON PACKAGE AND DECREASE BY 1 TAB EACH DAY FOR A TOTAL OF 6 DAYS 21 each 05/05/20 25 Active UBRELVY 100 MG tabletIndications: Migraine without aura and without status migrainosus, not intractable TAKE 1 TABLET BY MOUTH DAILY NEEDED FOR MIGRAINE. MAY REPEAT DOSE IN 2 HOURS IF NEEDED. MAX OF 2 TABLETS (200 MG) IN 24 HOURS 8 tablet 3 05/05/20 25 Active loratadine (CLARITIN) 10 MG tabletIndications: Seasonal allergic rhinitis, unspecified trigger Take 1 tablet (10 mg total) by mouth daily. 90 tablet 1 05/10/20 25 Active albuterol sulfate HFA 108 (90 Base) MCG/ACT inhalerIndications :Moderate persistent asthma without complication ([facility]) INHALE 2 PUFFS INTO THE LUNGS EVERY 4 HOURS NEEDED FOR WHEEZE 8 g 2 06/02/20 25 Active Active Problems Problem Noted Date Diagnosed Date Breast pain, left 11/30/2024 Excess skin of abdomen 08/18/2024 BMI 28.0-28.9,adult 07/06/2024 S/P foot surgery, right 05/05/2024 Right foot pain 05/05/2024 Recurrent major depressive disorder, in full rem ission 05/04/2024 Migraine without aura and wi thout status migrainosus, not intractable 05/04/2024 Moderate persistent asthma without complication 05/04/2024 Abnormal glucose 05/04/2024 Nausea 05/04/2024 History of hysterectomy 05/04/2024 Generalized anxiety disorder 05/04/2024 History of bilateral knee replacement 05/04/2024 Thrombocytosis 05/04/2024 Resolved Problems Problem Noted Date Diagnosed Date Resolved Date Anxiety 05/04/2024 05/05/2024 Encounters Date Type Department Care Team Description 07/19/2025 Telephone [facility] Medical [facility] [place] [address] [place] [address] Rual Marie, SENIOR IOS DEVELOPER Referral 06/23/2025 Telephone [facility] Medical [facility] [place] [address] [place], [place] [id number] Rula Marie, SENIOR IOS DEVELOPER Referral 06/13/2025 Scan HEALTH INFO SRVCS Scanned, Doc [facility] from Last 3 Months Immunizations Immunization Administration Dates Next Due Arexvy Respiratory Syncytial Virus (RSV, adjuvanted) 0.5 mL, PF 03/08/2025 Fluzone (IIV3, Trivalent, 0.5 ML Prefilled Syrin ) 07/06/2024 Pneumococcal (Prevnar 20) 05/04/2024 Shingrix 03/08/2025 Tdap (Adacel) 05/04/2024 Social History Tobacco Use Types Packs/Day Years Used Date Smoking Tobacco: Never Passive Smoke Exposure: Never Smokeless Tobacco: Never Tobacco Cessation:Counseling Given: No Alcohol Use Standard Drinks/Week Comments Never 0 (1 standard drink = 0.6 oz pur e alcohol) PHQ-2 Answer Date Recorded Patient Health Questionnaire-2 Score 0 03/08/2025 Comments No Sex and Gender Information Value Date Recorded Sex Assigned at Female 11/02/2024 11:10 AM SOLAR SALES SPECIALIST Legal Sex Female 10:31 AM CDT Gender Identity Female 11/02/2024 11:10 AM SOLAR SALES SPECIALIST Sexual Orientation Not on file Last Filed Vital Signs Vital Sign Reading Time Taken Comments Blood Pressure 108/68 03/31/2025 8:58 AM CDT Pulse 67 03/31/2025 8:58 AM CDT Temperature 36.8 C (98.2 F) 03/31/2025 8:58 AM CDT Respiratory Rate 16 03/31/2025 8:58 AM CDT Oxygen Saturation 97% 03/31/2025 8:58 AM CDT Inhaled Oxygen Concentration - - Weight 75.6 kg (166 lb 9.6 oz) 03/31/2025 8:58 A M CDT Height 170.2 cm (5' 7) 03/31/2025 8:58 AM CDT Body Mass Index 26.09 03/31/2025 8:58 AM CDT Plan of Treatment Upcoming Encounters Date Type Department Care Team (Late st Contact Info) Description 08/30/2025 8:30 AM SOLAR SALES SPECIALIST Office Visit [facility] [place] [address] [place], [place] [id number] Rula Marie, SENIOR IOS DEVELOPER [address] [place], [place] [id number] 08/30/2025 9:40 AM SOLAR SALES SPECIALIST Office Visit [facility] [place] [address] [place] [address] Rula Marie, SENIOR IOS DEVELOPER [address] [place] [address] Health Maintenance Due Date Last Done Comments Cervical Cancer Screening Pa p Smear (Age 30 to 64) Every 3 Years 1972 Annual Physical 02/03/1975 Hepatitis B Vaccines (1 of 3 - 19+ 3-dose series) 02/03/1991 Cervical Cancer Screening Pa p with HPV Testing (Age 30 to 64) Every 5 Years 02/03/2002 Cervical Cancer Screening wi th HPV 02/03/2002 COVID-19 Vaccine (1 - 2024-2 6 season) 2025 Zoster Vaccines (2 of 2) 05/03/2025 03/08/2025 Influenza Adult (#1) 2025 07/06/2024 Mammogram Screening 11/23/2026 11/23/2024, 06/30/2024 Colorectal Cancer Screening Colonoscopy (10 Years) 08/06/2032 08/06/2022, 08/06/2022 DTaP, Tdap and Td Vaccines ( 2 - Td or Tdap) 05/04/2034 05/04/2024 Hepatitis C Completed 05/04/2024 Pneumococcal Vaccine: 50+ Years Completed 05/04/2024 PHQ-2 (Physician Campo) Completed 03/08/2025 Hepatitis A Vaccines Aged Out No long er eligible based on patient's age to complete this topic Meningococcal B Vaccine Aged Out No l onger eligible based on patient's age to complete this topic Meningococcal Vaccine Aged Out No karla cooper eligible based on patient's age to complete this topic RSV Immunizations Under 20 Months Aged Out No longer eligible b ased on patient's age to complete this topic Procedures Procedure Name Priority Date/Time Associated Diagnosis Comments MAMMOGRAM GENERIC (SCAN ORDER) 11/23/2024 HEPATITIS C ANTIBODY W/RFX TO HCV RNA Routine 05/04/2024 11:11 AM CDT Need for hepatitis C screening test COLONOSCOPY GENERIC (SCAN ORDER) 08/06/2022 from Last 3 Months or Most Recently Relevant to Health Maintenance Results * MAMMOGRAM GENERIC (SCAN ORDER) (11/23/2024) Anatomical Region Laterality Modality Other 11/23/2024 [facility] Scanned SCANNING Final Resu lt * HEPATITIS C ANTIBODY W/RFX TO HCV RNA ([facility] ONLY) (05/04/2024 11:11 AM CDT) HEPATITIS C AB NON-REACT SEVERIANO NON-REACT SEVERIANO [facility] Comment: HCV antibody was non-reactive. There is no laboratory evidence of HCV infection. In most cases, no further action is required. However, if recent HCV exposure is suspected, a test for HCV RNA (test code 84414) is suggested. For additional information please refer to http://education.SkyPower/faq/DRR23v7 (This link is being provided for informational/ educational purposes only.) 05/04/2024 11:1 1 AM CDT 05/06/2024 4:35 AM CDT Narrative Resulting Agency Comment Performing Organization Information: Site ID: [id number] Name: [facility] Address: [address] [place] [id number] Director: Tata Flowers MD Rula Marie SENIOR IOS DEVELOPER LABORATORY Final Resul t [facility] Primary Data [facility] [id number] [place] [id number], * COLONOSCOPY GENERIC (SCAN ORDER) (08/06/2022) 08/06/2022 [facility] Scanned SCANNING Final Resu lt from Last 3 Months or Most Recently Relevant to Health Maintenance Insurance [employer] Care Teams Arbor Press Operator Relationship Specialty Start Date End Date Rula Marie, SENIOR IOS DEVELOPER [address] [place] [address] PCP - General NURSE PRACTITIONER 05/04/24
== END 2025-08-15 10:06 | disposition home or self-care (01) ==
PROVIDERS: PCP Nurse Practitioner; Visit Provider Orthopaedic Surgery
DX: G56.01 Carpal tunnel syndrome, right upper limb (principal)
CPT/HCPCS: 95886; 95909